=== PATIENT | female | born 1960 | race Caucasian/White ===

== ENCOUNTER 2023-02-22 06:58 | Emergency (ER) | payer MEDICARE, MEDICAID, SELFPAY ==
[2023-02-22 07:01] VITALS: BP 120/85; PULSE 90; TEMP 36.6; O2SAT 97; BMI 32.8
--- NOTE | 2023-02-22 07:10 | ED_ITS ---
HPI - Nausea/Vomiting/Diarrhea General: Chief complaint: Nausea/Vomiting/Diarrhea Stated complaint: n/v/d Time Seen by Provider: 02/22/23 07:00 Source: patient Mode of arrival: EMS Limitations: no limitations History of Present Illness: Patient is a 63-year-old female presents to ED today with a complaint of nausea, vomiting, diarrhea. Patient states symptoms started approximately 3 days ago. She states she is having approximately 4 episodes of nonbloody emesis today and states she will have a watery nonbloody diarrhea stool approximately every hour. She reports intermittent abdominal pain/cramping that she rates at its worst a 5/10. She has not been running fevers. No recent antibiotic use. No poor food exposures. Patient states she lives at home with her father-he does not have symptoms. Pain does not seem to be affected by eating but she admittedly has not ate over the past 1 to 2 days due to lack of appetite. She reports passing flatulence. No urinary symptoms. Previous abdominal surgeries include hysterectomy, cholecystectomy, appendectomy. She arrives to the ED via EMS in no acute distress with stable vital signs. MD elicited complaint: nausea, vomiting, diarrhea and abdominal pain Onset (ago): day(s) Associated nausea: Yes Associated abdominal pain: Yes Location of pain: Diffuse Pain consistency: intermittent Severity: moderate Pain scale (0-10): 5 Quality: cramping Exacerbating factors: none Relieving factors: none Associated symtoms: Reports nausea; Denies change in vision, chest pain, dizziness, dysuria, fatigue, headache(s), malaise, palpitations or syncope Review of Systems Const: Denies: fever(s), chills, body aches, fatigue or malaise Eyes: Denies: change in vision or blurry vision Card: Denies: chest pain, palpitations, irregular heart rhythm, lightheadedness, syncope or dyspnea on exertion Resp: Denies: dyspnea, productive cough or pain on inspiration GI: Reports: abdominal pain, nausea, vomiting and diarrhea; Denies: hematemesis, heartburn, hematochezia, melena, mucus in stool, white/light colored stool or steatorrhea : Denies: flank pain, difficulty voiding, dysuria, urinary frequency, urinary urgency or urinary hesitancy Musc: Denies: neck pain, back pain, extremity pain, extremity swelling or joint pain Skin/Breast: Denies: rash Neuro: Denies: headache(s), numbness in extremities, weakness in extremities, sensory changes or dizziness Physical Exam Const: COMMON NORMALS: no acute distress, patient oriented x3, no limitations, alert and well nourished GENERAL APPEARANCE: cooperative NUTRITIONAL APPEARANCE: overweight ORIENTATION/CONSCIOUSNESS: Yes awake, Yes oriented to person, Yes oriented to place and Yes oriented to time HENMT: COMMON NORMALS: normocephalic and atraumatic HEAD & SCALP: normocephalic and atraumatic Eye: COMMON NORMALS: no scleral icterus Neck/C-Spine: COMMON NORMALS: full ROM, no lymphadenopathy, supple and no meningeal signs Chest: COMMONS NORMALS: normal inspection of the chest Resp: COMMON NORMALS: normal respiratory effort and clear to auscultation bilaterally AUSCULTATION: clear to auscultation bilaterally Cardio: COMMON NORMALS: regular rate and regular rhythm RATE: regular rate RHYTHM: regular rhythm GI: COMMON NORMALS: Normal to inspection, nondistended, normoactive bowel sounds present, Soft to palpation, No hepatosplenomegaly present and no masses INSPECTION: Yes normal to inspection AUSCULTATION: Yes normoactive bowel sounds PALPATION: Yes Soft to palpation, Yes Tenderness to palpation present (GI) (epigastric; non-surgical exam), No Guarding due to palpation present (GI), No Rigid due to palpation and Yes No hepatosplenomegaly present : COMMON NORMALS: Yes no CVA tenderness BLADDER/KIDNEY EXAM: Yes no CVA tenderness Back/Pelvis: COMMON NORMALS: no CVA tenderness and thoracic and lumbar spine normal to inspection Extremity: COMMON NORMALS: normal to inspection GENERAL: Yes normal exam except as noted Neuro: JONEL COMA SCALE: document GCS findings Jonel coma scale eye opening: Spontaneous [place] coma scale verbal response: Orientated Jonel coma scale motor response: Obey commands [place] coma scale total score: 15 COMMON NORMALS: patient oriented x3, moves all extremities, no focal motor deficits and no sensory deficits noted SENSORIUM/ORIENTATION: Yes alert, Yes oriented to person, Yes oriented to place and Yes oriented to time MENINGEAL SIGNS: Yes no meningeal signs Skin: COMMON NORMALS: no rashes or lesions noted GENERAL SKIN EXAM: no rashes or lesions noted Course Vital Signs: Vital signs: Vital Signs Temperature 97.8 F 02/22/23 07:01 Pulse Rate 83 02/22/23 07:29 Respiratory Rate 16 02/22/23 07:29 Blood Pressure 120/85 02/22/23 07:29 Pulse Oximetry 98 02/22/23 07:29 Oxygen Delivery Me thod Room Air 02/22/23 07:29 MDM - Nausea/Vomiting/Diarrhea Medical Decision Making Upon re-examination patient tells me her nausea has much improved after IV Zofran. She has ate some crackers here as well as drink water and Sprite. She has not had any episodes of vomiting or diarrhea during her stay. Her vital signs have remained completely normal. Patient has some minor epigastric tenderness but her abdomen is certainly non-surgical at this time. Blood work does show a white count of 19.5. I think this is most likely stress/vomiting induced. Donnie panel showing some minor electrolyte derangements. Creatinine is slightly elevated at 1.5 although we do not have a baseline for comparison. Patient was given a liter of fluids. UA slightly suspicious for infection however patient denies urinary complaints. She states she would like to hold off on antibiotics at this time as this most likely would make her diarrhea worse. I think this is reasonable. We will culture. Discussed strict follow- up with her primary care provider this week for re-evaluation/lab repeat. Return to ED precautions given. Lab Data 02/22/23 07:12 02/22/23 07:12 Laboratory Results WBC 19.55 10^3/uL (3.29-11.43) H 02/22/23 07:12 RBC 4.95 10^6/uL (3.85-5.65) 02/22/23 07:12 Hgb 14.40 g/dL (11.27-16.99) 02/22/23 07:12 Hct 43.7 % (36-47) 02/22/23 07:12 MCV 88.3 fl (85-98) 02/22/23 07:12 MCH 29.1 pg (27-33) 02/22/23 07:12 MCHC 33.0 g/dL (30-55) 02/22/23 07:12 RDW 15.3 % (12.1-15.1) H 02/22/23 07:12 Plt Count 260 10^3/cmm (157-399) 02/22/23 07:12 MPV 9.3 fL (7.4-10.4) 02/22/23 07:12 Neut % (Auto) 86.8 % 02/22/23 07:12 Lymph % (Auto) 7.2 % 02/22/23 07:12 Garden % (Auto) 5.0 % 02/22/23 07:12 Eos % (Auto) 0.1 % 02/22/23 07:12 Baso % (Auto) 0.4 % 02/22/23 07:12 Neut # (Auto) 16.98 10^3/uL (1.8-7.7) H 02/22/23 07:12 Lymph # (Auto) 1.4 10^3/uL (0.8-4.8) 02/22/23 07:12 Garden # (Auto) 1.0 10^3/uL (0.2-0.9) H 02/22/23 07:12 Eos # (Auto) 0.0 10^3/uL (0.0-0.8) 02/22/23 07:12 Baso # (Auto) 0.1 10^3/uL (0.0-0.1) 02/22/23 07:12 Nucleated RBC % (auto) 0 % 02/22/23 07:12 Nucleated RBCs # 0.0 /100WBC 02/22/23 07:12 Sodium 133 mmol/L (136-145) L 02/22/23 07:12 Potassium 3.2 mmol/L (3.5-5.1) L 02/22/23 07:12 Chloride 93 mmol/L (98-107) L 02/22/23 07:12 Carbon Dioxide 26 mmol/L (22-29) 02/22/23 07:12 Anion Gap 17.2 (5-19) 02/22/23 07:12 BUN 15 mg/dL (8-23) 02/22/23 07:12 Creatinine 1.5 mg/dL (0.5-0.9) H 02/22/23 07:12 GFR Calculation 35.2 mL/min (90-130) L 02/22/23 07:12 Glucose 142 mg/dL (65-115) H 02/22/23 07:12 Calculated Osmolality 279 mOsm/kg (285-295) L 02/22/23 07:12 Calcium 9.5 mg/dL (8.5-10.5) 02/22/23 07:12 Total Bilirubin 0.8 mg/dL (0.15-1.2) 02/22/23 07:12 AST 26 U/L (0-32) 02/22/23 07:12 ALT 42 U/L (0-33) H 02/22/23 07:12 Alkaline Phosphatase 138 U/L (35-105) H 02/22/23 07:12 Total Protein 8.9 g/dL (6.6-8.7) H 02/22/23 07:12 Albumin 4.3 g/dL (3.5-5.2) 02/22/23 07:12 Globulin 4.6 g/dL (1.3-4.6) 02/22/23 07:12 Lipase 17 U/L (13-60) 02/22/23 07:12 Urine Color Dark yellow (Yellow) 02/22/23 08:11 Urine Appearance Clear (CLEAR) 02/22/23 08:11 Urine pH 5 (5-7) 02/22/23 08:11 Ur Specific [place] 1.020 (1.005-1.030) 02/22/23 08:11 Urine Protein Trace (Negative) 02/22/23 08:11 Urine Glucose (UA) Norm (Normal) 02/22/23 08:11 Urine Ketones Negative (Negative) 02/22/23 08:11 Urine Blood 2+ (Negative) H 02/22/23 08:11 Urine Nitrate Positive (Negative) H 02/22/23 08:11 Urine Bilirubin 1+ (Negative) H 02/22/23 08:11 Urine Urobilinogen Norm mg/dL (Negative) 02/22/23 08:11 Ur Leukocyte Esterase Trace (Negative) H 02/22/23 08:11 Urine RBC 10-15 /hpf (0-2) H 02/22/23 08:11 Urine WBC 0-4 /hpf (0-5) H 02/22/23 08:11 Ur Squamous Epith Cells 0-4 /hpf (0-5) H 02/22/23 08:11 Amorphous Sediment Not Reportable 02/22/23 08:11 Urine Bacteria 2+ /hpf (NONE) H 02/22/23 08:11 Urine Mucus 1+ /hpf 02/22/23 08:11 No radiology studies performed this visit Discharge Plan Discharge Patient Disposition: Home Clinical Impression: Gastroenteritis Condition: Stable Prescriptions: New ondansetron 4 mg tablet,disintegrating 4 mg PO Q8H PRN (Reason: nausea and vomiting) Qty: 14 0RF Discharge Orders: Discharge ED (Routine); Ordered 02/22/23 Ordered By: Shannan Castaneda Referrals: Zuhair Miguel NP [Nurse Practitioner] - 03/16/23 8:50 am (You have an appointment scheduled to establish primary care scheduled with Zuhair Miguel NP at [facility] on March 16, at 8:50AM. If this appointment does not work for you, please call to reschedule at [phone].) Patient Instructions: Gastroenteritis (DC), Acute Nausea and Vomiting (DC) Activity Restrictions/Additional Instructions: As we discussed you may take nausea medications as needed. I want you to start doing a bland liquid diet over the next 24 hours and slowly advance to soft foods and then back to a normal diet as tolerated. As we discussed you need to return to the emergency department for continued episodes of vomiting, diarrhea, worsening abdominal pain, fevers, generally feeling worse or unwell, or any other concerns you may have. 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
[2023-02-22 07:18] LABS: Basophils # 0.1 10^3/uL (0.0-0.1); Basophils % 0.4 %; Eosinophils % 0.1 %; Hematocrit 43.7 % (36-47); Lymphocytes # 1.4 10^3/uL (0.8-4.8); Lymphocytes % 7.2 %; Mean Corpuscular Hemoglobin 29.1 pg (27-33); Mean Corpuscular Volume 88.3 fl (85-98); Mean Platelet Volume 9.3 fL (7.4-10.4); Neutrophils # 16.98 10^3/uL (1.8-7.7); Neutrophils % 86.8 %; Nucleated Red Blood Cells % 0 %; Platelet Count 260 10^3/cmm (157-399); Red Blood Count 4.95 10^6/uL (3.85-5.65); Red Cell Distribution Width 15.3 % (12.1-15.1); White Blood Count 19.55 10^3/uL (3.29-11.43)
[2023-02-22] MEDS: ondansetron 2 mg/ML SDV 2 mL 4 MG IVP (07:24)
[2023-02-22] MEDS: sodium chloride 0.9% 1,000 ML 999 ML IV (07:25)
[2023-02-22 07:29] VITALS: BP 120/85; PULSE 83; RESP 16; O2SAT 98
[2023-02-22 07:35] LABS: Alanine Aminotransferase 42 U/L (0-33); Albumin Level 4.3 g/dL (3.5-5.2); Alkaline Phosphatase 138 U/L (35-105); Anion Gap 17.2 (5-19); Aspartate Amino Transferase 26 U/L (0-32); Blood Urea Nitrogen 15 mg/dL (8-23); Calcium 9.5 mg/dL (8.5-10.5); Carbon Dioxide 26 mmol/L (22-29); Chloride 93 mmol/L (98-107); Globulin 4.6 g/dL (1.3-4.6); Glomerular Filtration Rate 35.2 mL/min (90-130); Glucose 142 mg/dL (65-115); Lipase 17 U/L (13-60); Osmolality Calculated 279 mOsm/kg (285-295); Potassium 3.2 mmol/L (3.5-5.1); Sodium 133 mmol/L (136-145); Total Bilirubin 0.8 mg/dL (0.15-1.2); Total Protein 8.9 g/dL (6.6-8.7)
--- NOTE | 2023-02-22 07:40 | PC.PHAR ---
Addendum entered by Monica Womack 02/22/23 09:15: pt discharged before [facility] was able to verify meds Original Note: pt uses [facility]-they open at 9am-pt states she takes hctz one tab hs-kcl 2 tabs hs-effexor 1 tab hs-gabapentin 100mg 200mg bid and some kind of bladder medication one tab hs-pt states she is unsure of the mg's of her meds [facility] doesnt open till 9 to verify
[2023-02-22 08:36] LABS: Add Urine Microscopic? YES; Bilirubin Urine 1+ (Negative); Blood Urine 2+ (Negative); Glucose Urine UA Norm (Normal); Ketones Urine Negative (Negative); Leukocyte Esterase Urine Trace (Negative); Nitrate Urine Positive (Negative); Protein Urine Trace (Negative); Urine Appearance Clear (CLEAR); Urine Color Dark Yellow (Yellow); Urobilinogen Urine Norm (Negative); pH Urine 5 (5-7)
[2023-02-22 08:38] LABS: Add Urine Culture? Yes; Bacteria Urine 2+ /hpf; Mucus Urine 1+ /hpf; Squamous Epithelial Cell Urine 0-4 /hpf (0-5); WBC Urine 0-4 /hpf (0-5)
[2023-02-22 08:43] VITALS: BP 147/86; PULSE 90; RESP 16; O2SAT 96
--- NOTE | 2023-02-22 08:46 | PC.SOCIAL ---
PCP Appt Appt to establish primary care made; added to discharge plan.
[2023-02-22 09:11] VITALS: BP 147/86; PULSE 90; RESP 16; O2SAT 96
== END 2023-02-22 09:12 | disposition home or self-care (01) ==
PROVIDERS: Emergency Provider Physician Assistant
DX: K52.9 Noninfective gastroenteritis and colitis, unspecified (principal)
CPT/HCPCS: 80053; 81001; 83690; 85025; 87077; 87086; 87186; 96361; 96374; 99284; J2405; J7030

== ENCOUNTER 2023-02-24 14:58 | Inpatient (IN) | payer MEDICARE, MEDICAID, SELFPAY ==
[2023-02-24] VITALS (7 sets, daily range): BP systolic 128–149; BP diastolic 79–81; PULSE 81–89; RESP 15–17; TEMP 36.4–37.1; O2SAT 97–98; BMI 33.6
--- NOTE | 2023-02-24 15:08 | CTR_ITS ---
PROCEDURE INFORMATION: Exam: CT Abdomen And Pelvis With Contrast Exam date and time: 02/24/2023 5:38 PM Age: 63 years old Clinical indication: Abdominal pain; Localized; Left lower quadrant (llq); Prior surgery; Surgery date: 6+ months; Surgery type: Jess, hyst, stimulator; Additional info: Lower abdominal, llq pain; UTI TECHNIQUE: Imaging protocol: Computed tomography of the abdomen and pelvis with contrast. Radiation optimization: All CT scans at this facility use at least one of these dose optimization techniques: automated exposure control; mA and/or kV adjustment per patient size (includes targeted exams where dose is matched to clinical indication); or iterative reconstruction. Contrast material: OMNI 350; Contrast volume: 100 ml; Contrast route: INTRAVENOUS (IV); REPORTING DATA: Count of CT and Cardiac NM exams in prior 12 months: This patient has received 0 known CTs and 0 known cardiac nuclear medicine studies in the 12 months prior to the current study. COMPARISON: No relevant prior studies available. RADIATION DOSE METRICS: Total DLP (mGy-cm): 754 FINDINGS: Tubes, catheters and devices: Left sacral stimulator. Lungs: Bibasilar atelectasis. Liver: Hepatic steatosis. Gallbladder and bile ducts: Cholecystectomy. Pancreas: Normal. No ductal dilation. Spleen: Spleen enlarged at 13 cm. Adrenal glands: Normal. No mass. Kidneys and ureters: Normal. No hydronephrosis. Stomach and bowel: Prominent fluid in the small bowel and colon with left colon wall thickening suggestive of an enterocolitis. Appendix: Appendix demonstrates minimal dilation to 6.8 mm without surrounding inflammation, findings are not definitive for appendicitis by CT alone, please correlate clinically. Intraperitoneal space: Unremarkable. No free air. No significant fluid collection. Vasculature: Unremarkable. No abdominal aortic aneurysm. Lymph nodes: Unremarkable. No enlarged lymph nodes. Urinary bladder: Unremarkable as visualized. Reproductive: Unremarkable as visualized. Bones/joints: T12 and L5 vertebral body compression fractures with minimal retropulsion of bony fragments without spinal canal narrowing. Soft tissues: Unremarkable. CT/CT abdomen pelvis w con* [id number] IMPRESSION: 1. Prominent fluid in the small bowel and colon with left colon wall thickening suggestive of an enterocolitis. 2. T12 and L5 vertebral body compression fractures with minimal retropulsion of bony fragments without spinal canal narrowing. 3. Left sacral stimulator. 4. Appendix demonstrates minimal dilation to 6.8 mm without surrounding inflammation, findings are not definitive for appendicitis by CT alone, please correlate clinically. 5. Bibasilar atelectasis. 6. Hepatic steatosis. 7. Cholecystectomy. 8. Spleen enlarged at 13 cm.
--- NOTE | 2023-02-24 15:09 | ED_ITS ---
Dr. Costello: Have seen and examined the patient. She continues to have diarrhea many times throughout her ER stay. She has urinary frequency with low volumes. She has an E. coli UTI. She has dehydration and hypokalemia. C. difficile is pending. CT scan suggestive of enterocolitis. Discussed with patient and hospitalist. Patient will be admitted to [facility] with IV fluids. We will give her Rocephin for her UTI and follow stool studies. She has gotten 60 mEq of potassium in the ED as an oral dose and is getting 20 IV. Documented by User: MED Matute 02/25/23 07:06 HPI - Abdominal Pain General: Chief Complaint: Nausea/Vomiting/Diarrhea Stated Complaint: N/V/D Time Seen by Provider: 02/24/23 15:01 Source: patient Mode of arrival: ambulatory Limitations: no limitations History of Present Illness: Patient is a 63-year-old female who returns to the ED today for re-evaluation of symptoms. I personally saw patient two days ago with complaints of N/V/D that had been present for about three days or so. At that visit she had some mild intermittent abdominal cramping. She was worked up with blood work that did show leukocytosis. She had a nontender abdomen. UA at the time looks suspicious for UTI however patient had absolutely no urinary complaints and we discussed holding off on antibiotic coverage until culture returns especially since this was likely to worsen her diarrhea. Patient states since her discharge her nausea and vomiting has subsided. She has continued to have frequent watery diarrhea. She states since her visit she now has developed symptoms consistent with acute cystitis with dysuria, frequency, urgency. She is also complaining of some lower abdominal cramping to suprapubic and left lower quadrant regions. She has not been running fevers. Denies flank pain. Review of previous urine culture does show E. coli. MD elicited complaint: abdominal pain and other (diarrhea, urinary complaints) Onset (ago): day(s) Pain Consistency: constant Location: LLQ and Suprapubic Severity: moderate Quality: sharp Radiation: back Migration to: no migration Exacerbating factors: other (urinating) Relieving factors: nothing Associated Symptoms: Reports diarrhea, dysuria and nausea; Denies chills, fever(s), heartburn, hematochezia, hematuria, hematemesis, melena, syncope and vomiting Related Data: Patient : No Review of Systems Const: Denies: fever(s), chills, body aches, fatigue or malaise Eyes: Denies: change in vision or blurry vision Card: Denies: chest pain, palpitations, irregular heart rhythm, lighthea dedness, syncope or dyspnea on exertion Resp: Denies: dyspnea, productive cough or pain on inspiration GI: Reports: abdominal pain, nausea and diarrhea; Denies: vomiting, hematemesis, heartburn, hematochezia or melena : Reports: dysuria, urinary frequency and urinary urgency; Denies: flank pain, difficulty voiding, hematuria or pelvic pain Musc: Reports: back pain; Denies: neck pain, extremity pain, extremity swelling or joint pain Skin/Breast: Denies: rash Neuro: Denies: headache(s), numbness in extremities, weakness in extremities, sensory changes or dizziness PFSH ED PFSH: Medical History (Updated 02/24/23 @ 20:03 by Campos Mccollum MD) HTN (hypertension) Kidney calculi Lumbar vertebral fracture Surgical History (Updated 02/24/23 @ 20:03 by Campos Mccollum MD) H/O lithotripsy H/O: hysterectomy Family History (Updated 02/24/23 @ 20:03 by Campos Mccollum MD) Other CAD (coronary artery disease) Diabetes Social History (Updated 02/24/23 @ 20:03 by Campos Mccollum MD) Smoking and tobacco status: never smoked Alcohol intake: never Substance/Drug Use: never Lives independently: Yes Household members: family Housing: House Physical Exam Const: COMMON NORMALS: no acute distress, patient oriented x3, no limitations, alert and well nourished GENERAL APPEARANCE: cooperative ROWENA ENTATION/CONSCIOUSNESS: Yes awake, Yes oriented to person, Yes oriented to place and Yes oriented to time Eye: COMMON NORMALS: no scleral icterus Resp: COMMON NORMALS: normal respiratory effort and clear to auscultation bilaterally AUSCULTATION: clear to auscultation bilaterally Cardio: COMMON NORMALS: regular rate and regular rhythm RATE: regular rate RHYTHM: regular rhythm GI: COMMON NORMALS: Normal to inspection, nondistended, normoactive bowel sounds present, Soft to palpation, No hepatosplenomegaly present and no masses INSPECTION: Yes normal to inspection AUSCULTATION: Yes normoactive bowel sounds PALPATION: Yes Soft to palpation, Yes Tenderness to palpation present (GI) (suprapubic, LLQ), No Guarding due to palpation present (GI), No Rigid due to palpation and Yes No hepatosplenomegaly present : COMMON NORMALS: Yes no CVA tenderness BLADDER/KIDNEY EXAM: Yes no CVA tenderness Back/Pelvis: COMMON NORMALS: no CVA tenderness THORACIC SPINE/UPPER BACK: Yes normal to inspection, No thoracic spinal tenderness, No paraspinal muscle tenderness and No paraspinal muscle spasm LUMBAR SPINE/LOWER BACK: Yes normal to inspection, No lumbar spinal tenderness, Yes paraspinal muscle tenderness and No paraspinal muscle spasm PELVIS: Yes buttocks normal and No sciatic notch tenderness SACROILIAC JOINTS: Yes SI joints normal SACRUM: no tenderness COCCYX: no tenderness Extremity: COMMON NORMALS: normal to inspection GENERAL: Yes normal exam except as noted Neuro: JONEL COMA SCALE: document GCS findings Jonel coma scale eye opening: Spontaneous Jonel coma scale verbal response: Orientated Jonel coma scale motor response: Obey commands Pelican coma scale total score: 15 COMMON NORMALS: patient oriented x3, moves all extremities, no focal motor deficits and no sensory deficits noted SENSORIUM/ORIENTATION: Yes alert, Yes oriented to person, Yes oriented to place and Yes oriented to time Skin: COMMON NORMALS: no rashes or lesions noted GENERAL SKIN EXAM: no rashes or lesions noted Course ED course: Care transferred to Dr. Costello pending remainder of labs/UA/CT imaging. Plan will be for admission for worsening diarrhea, UTI, hypokalemia Vital Signs: Vital signs: Vital Signs Temperature 97.2 F L 02/25/23 11:01 Pulse Rate 82 02/25/23 11:01 Respiratory Rate 17 02/25/23 11:01 Blood Pressure 112/57 02/25/23 11:01 Pulse Oximetry 97 02/25/23 11:01 Oxygen Delivery Me thod Room Air 02/25/23 04:14 MDM - Abdominal Pain Medical Decision Making Care transferred to Dr. Costello-CATHERINE Lab Data 02/25/23 05:15 02/25/23 05:15 Labs/Radiology: Radiology Impressions Abdomen/Pelvis CT 02/24/23 15:08 IMPRESSION: 1. Prominent fluid in the small bowel and colon with left colon wall thickening suggestive of an enterocolitis. 2. T12 and L5 vertebral body compression fractures with minimal retropulsion of bony fragments without spinal canal narrowing. 3. Left sacral stimulator. 4. Appendix demonstrates minimal dilation to 6.8 mm without surrounding inflammation, findings are not definitive for appendicitis by CT alone, please correlate clinically. 5. Bibasilar atelectasis. 6. Hepatic steatosis. 7. Cholecystectomy. 8. Spleen enlarged at 13 cm. Laboratory Results WBC 9.02 10^3/uL (3.29-11.43) 02/24/23 15:41 RBC 4.83 10^6/uL (3.85-5.65) 02/24/23 15:41 Hgb 13.80 g/dL (11.27-16.99) 02/24/23 15:41 Hct 40.9 % (36-47) 02/24/23 15:41 MCV 84.7 fl (85-98) L 02/24/23 15:41 MCH 28.6 pg (27-33) 02/24/23 15:41 MCHC 33.7 g/dL (30-55) 02/24/23 15:41 RDW 15.2 % (12.1-15.1) H 02/24/23 15:41 Plt Count 261 10^3/cmm (157-399) 02/24/23 15:41 MPV 10.4 fL (7.4-10.4) 02/24/23 15:41 Lymph % (Auto) Not Reportable 02/24/23 15:41 Tripp % (Auto) Not Reportable 02/24/23 15:41 Lymph # (Auto) Not Reportable 02/24/23 15:41 Tripp # (Auto) Not Reportable 02/24/23 15:41 Total Counted 100 (0-100) 02/24/23 15:41 Atypical Lymphs % 2.0 % (0-5) 02/24/23 15:41 Absolute Neutrophils 5.4 10^3/cmm (1.4-6.5) 02/24/23 15:41 Segmented Neutrophils 41 % 02/24/23 15:41 Abs Segm Neuts (Man) 3.7 10/cmm (1.6-7.1) 02/24/23 15:41 Band Neutrophils 19.0 % 02/24/23 15:41 Abs Band Neuts (Man) 1.7 10^3/cmm (0.0-1.2) H 02/24/23 15:41 Absolute Lymphocytes 2.0 10^3/cmm (1.2-3.4) 02/24/23 15:41 Lymphocytes (Manual) 20 % 02/24/23 15:41 Monocytes (Manual) 13.0 % 02/24/23 15:41 Absolute Monocytes 1.2 10^3/cmm (0.1-0.6) H 02/24/23 15:41 Eosinophils (Manual) 3 % 02/24/23 15:41 Absolute Eosinophils 0.3 10^3/cmm (0.0-0.7) 02/24/23 15:41 Basophils (Manual) 0.0 % 02/24/23 15:41 Absolute Basophils 0.0 10^3/cmm (0.0-0.2) 02/24/23 15:41 Platelet Estimate Normal (Normal) 02/24/23 15:41 Sodium 129 mmol/L (136-145) L 02/24/23 16:08 Potassium 2.5 mmol/L (3.5-5.1) L* 02/24/23 16:08 Chloride 90 mmol/L (98-107) L 02/24/23 16:08 Carbon Dioxide 25 mmol/L (22-29) 02/24/23 16:08 Anion Gap 16.5 (5-19) 02/24/23 16:08 BUN 22 mg/dL (8-23) 02/24/23 16:08 Creatinine 1.6 mg/dL (0.5-0.9) H 02/24/23 16:08 GFR Calculation 32.7 mL/min (90-130) L 02/24/23 16:08 Glucose 130 mg/dL (65-115) H 02/24/23 16:08 Estimat Average Glucose 120 02/24/23 15:41 Hemoglobin A1c 5.8 % (4.0-6.0) 02/24/23 15:41 Calculated Osmolality 273 mOsm/kg (285-295) L 02/24/23 16:08 Calcium 8.7 mg/dL (8.5-10.5) 02/24/23 16:08 Magnesium 1.9 mg/dL (1.7-2.3) 02/24/23 16:08 Total Bilirubin 0.9 mg/dL (0.15-1.2) 02/24/23 16:08 AST 31 U/L (0-32) 02/24/23 16:08 ALT 32 U/L (0-33) 02/24/23 16:08 Alkaline Phosphatase 108 U/L (35-105) H 02/24/23 16:08 Total Protein 8.2 g/dL (6.6-8.7) 02/24/23 16:08 Albumin 3.7 g/dL (3.5-5.2) 02/24/23 16:08 Globulin 4.5 g/dL (1.3-4.6) 02/24/23 16:08 Lipase 19 U/L (13-60) 02/24/23 16:08 Vitamin B12 480 pg/mL (232-1245) 02/24/23 16:08 Procalcitonin 0.55 ng/mL (0-0.5) H 02/24/23 16:08 TSH 3.77 uIU/mL (0.27-4.20) 02/24/23 16:08 Urine Color Yellow (Yellow) 02/24/23 16:32 Urine Appearance Cloudy (CLEAR) A 02/24/23 16:32 Urine pH 5 (5-7) 02/24/23 16:32 Ur Specific [place] 1.020 (1.005-1.030) 02/24/23 16:32 Urine Protein 3+ (Negative) H 02/24/23 16:32 Urine Glucose (UA) Norm (Normal) 02/24/23 16:32 Urine Ketones 1+ (Negative) H 02/24/23 16:32 Urine Blood 3+ (Negative) H 02/24/23 16:32 Urine Nitrate Negative (Negative) 02/24/23 16:32 Urine Bilirubin Neg (Negative) 02/24/23 16:32 Urine Urobilinogen 1 mg/dL (Negative) H 02/24/23 16:32 Ur Leukocyte Esterase 2+ (Negative) H 02/24/23 16:32 Urine RBC 10-15 /hpf (0-2) H 02/24/23 16:32 Urine WBC Too numerous to cnt /hpf (0-5) H 02/24/23 16:32 Ur Squamous Epith Cells 0-4 /hpf (0-5) H 02/24/23 16:32 Amorphous Sediment Not Reportable 02/24/23 16:32 Urine Bacteria Trace /hpf (NONE) 02/24/23 16:32 All radiology interpretation(s) finalized by discharge Discharge Plan Discharge Patient Disposition: Admitted As Inpatient Admit Provider: Campos Mccollum Clinical Impression: E-coli UTI, Dehydration, Acute hypokalemia, Diarrhea, Hyponatremia Condition: Stable Coding Level of Care Code ED [employer] Maker for Chg Fwd Documented by User: Tye Costello MD 02/25/23 11:35 HPI - Abdominal Pain General: Chief Complaint: Nausea/Vomiting/Diarrhea Stated Complaint: N/V/D Time Seen by Provider: 02/24/23 15:01 [facility] ED PFSH: Medical History (Updated 02/24/23 @ 20:03 by Campos Mccollum MD) HTN (hypertension) Kidney calculi Lumbar vertebral fracture Surgical History (Updated 02/24/23 @ 20:03 by Campos Mccollum MD) H/O lithotripsy H/O: hysterectomy Family History (Updated 02/24/23 @ 20:03 by Campos Mccollum MD) Other CAD (coronary artery disease) Diabetes Social History (Updated 02/24/23 @ 20:03 by Campos Mccollum MD) Smoking and tobacco status: never smoked Alcohol intake: never Substance/Drug Use: never Lives independently: Yes Household members: family Housing: House Physical Exam Neuro: JONEL COMA SCALE: document GCS findings Pelican coma scale total score: 15 Course Vital Signs: Vital signs: Vital Signs Temperature 97.2 F L 02/25/23 11:01 Pulse Rate 82 02/25/23 11:01 Respiratory Rate 17 02/25/23 11:01 Blood Pressure 112/57 02/25/23 11:01 Pulse Oximetry 97 02/25/23 11:01 Oxygen Delivery Me thod Room Air 02/25/23 04:14 MDM - Abdominal Pain Lab Data 02/25/23 05:15 02/25/23 05:15 Labs/Radiology: Radiology Impressions Abdomen/Pelvis CT 02/24/23 15:08 IMPRESSION: 1. Prominent fluid in the small bowel and colon with left colon wall thickening suggestive of an enterocolitis. 2. T12 and L5 vertebral body compression fractures with minimal retropulsion of bony fragments without spinal canal narrowing. 3. Left sacral stimulator. 4. Appendix demonstrates minimal dilation to 6.8 mm without surrounding inflammation, findings are not definitive for appendicitis by CT alone, please correlate clinically. 5. Bibasilar atelectasis. 6. Hepatic steatosis. 7. Cholecystectomy. 8. Spleen enlarged at 13 cm. Laboratory Results WBC 9.02 10^3/uL (3.29-11.43) 02/24/23 15:41 RBC 4.83 10^6/uL (3.85-5.65) 02/24/23 15:41 Hgb 13.80 g/dL (11.27-16.99) 02/24/23 15:41 Hct 40.9 % (36-47) 02/24/23 15:41 MCV 84.7 fl (85-98) L 02/24/23 15:41 MCH 28.6 pg (27-33) 02/24/23 15:41 MCHC 33.7 g/dL (30-55) 02/24/23 15:41 RDW 15.2 % (12.1-15.1) H 02/24/23 15:41 Plt Count 261 10^3/cmm (157-399) 02/24/23 15:41 MPV 10.4 fL (7.4-10.4) 02/24/23 15:41 Lymph % (Auto) Not Reportable 02/24/23 15:41 Tripp % (Auto) Not Reportable 02/24/23 15:41 Lymph # (Auto) Not Reportable 02/24/23 15:41 Tripp # (Auto) Not Reportable 02/24/23 15:41 Total Counted 100 (0-100) 02/24/23 15:41 Atypical Lymphs % 2.0 % (0-5) 02/24/23 15:41 Absolute Neutrophils 5.4 10^3/cmm (1.4-6.5) 02/24/23 15:41 Segmented Neutrophils 41 % 02/24/23 15:41 Abs Segm Neuts (Man) 3.7 10/cmm (1.6-7.1) 02/24/23 15:41 Band Neutrophils 19.0 % 02/24/23 15:41 Abs Band Neuts (Man) 1.7 10^3/cmm (0.0-1.2) H 02/24/23 15:41 Absolute Lymphocytes 2.0 10^3/cmm (1.2-3.4) 02/24/23 15:41 Lymphocytes (Manual) 20 % 02/24/23 15:41 Monocytes (Manual) 13.0 % 02/24/23 15:41 Absolute Monocytes 1.2 10^3/cmm (0.1-0.6) H 02/24/23 15:41 Eosinophils (Manual) 3 % 02/24/23 15:41 Absolute Eosinophils 0.3 10^3/cmm (0.0-0.7) 02/24/23 15:41 Basophils (Manual) 0.0 % 02/24/23 15:41 Absolute Basophils 0.0 10^3/cmm (0.0-0.2) 02/24/23 15:41 Platelet Estimate Normal (Normal) 02/24/23 15:41 Sodium 129 mmol/L (136-145) L 02/24/23 16:08 Potassium 2.5 mmol/L (3.5-5.1) L* 02/24/23 16:08 Chloride 90 mmol/L (98-107) L 02/24/23 16:08 Carbon Dioxide 25 mmol/L (22-29) 02/24/23 16:08 Anion Gap 16.5 (5-19) 02/24/23 16:08 BUN 22 mg/dL (8-23) 02/24/23 16:08 Creatinine 1.6 mg/dL (0.5-0.9) H 02/24/23 16:08 GFR Calculation 32.7 mL/min (90-130) L 02/24/23 16:08 Glucose 130 mg/dL (65-115) H 02/24/23 16:08 Estimat Average Glucose 120 02/24/23 15:41 Hemoglobin A1c 5.8 % (4.0-6.0) 02/24/23 15:41 Calculated Osmolality 273 mOsm/kg (285-295) L 02/24/23 16:08 Calcium 8.7 mg/dL (8.5-10.5) 02/24/23 16:08 Magnesium 1.9 mg/dL (1.7-2.3) 02/24/23 16:08 Total Bilirubin 0.9 mg/dL (0.15-1.2) 02/24/23 16:08 AST 31 U/L (0-32) 02/24/23 16:08 ALT 32 U/L (0-33) 02/24/23 16:08 Alkaline Phosphatase 108 U/L (35-105) H 02/24/23 16:08 Total Protein 8.2 g/dL (6.6-8.7) 02/24/23 16:08 Albumin 3.7 g/dL (3.5-5.2) 02/24/23 16:08 Globulin 4.5 g/dL (1.3-4.6) 02/24/23 16:08 Lipase 19 U/L (13-60) 02/24/23 16:08 Vitamin B12 480 pg/mL (232-1245) 02/24/23 16:08 Procalcitonin 0.55 ng/mL (0-0.5) H 02/24/23 16:08 TSH 3.77 uIU/mL (0.27-4.20) 02/24/23 16:08 Urine Color Yellow (Yellow) 02/24/23 16:32 Urine Appearance Cloudy (CLEAR) A 02/24/23 16:32 Urine pH 5 (5-7) 02/24/23 16:32 Ur Specific [place] 1.020 (1.005-1.030) 02/24/23 16:32 Urine Protein 3+ (Negative) H 02/24/23 16:32 Urine Glucose (UA) Norm (Normal) 02/24/23 16:32 Urine Ketones 1+ (Negative) H 02/24/23 16:32 Urine Blood 3+ (Negative) H 02/24/23 16:32 Urine Nitrate Negative (Negative) 02/24/23 16:32 Urine Bilirubin Neg (Negative) 02/24/23 16:32 Urine Urobilinogen 1 mg/dL (Negative) H 02/24/23 16:32 Ur Leukocyte Esterase 2+ (Negative) H 02/24/23 16:32 Urine RBC 10-15 /hpf (0-2) H 02/24/23 16:32 Urine WBC Too numerous to cnt /hpf (0-5) H 02/24/23 16:32 Ur Squamous Epith Cells 0-4 /hpf (0-5) H 02/24/23 16:32 Amorphous Sediment Not Reportable 02/24/23 16:32 Urine Bacteria Trace /hpf (NONE) 02/24/23 16:32 Discharge Plan Discharge Patient Disposition: Admitted As Inpatient Admit Provider: Campos Mccollum Clinical Impression: E-coli UTI, Dehydration, Acute hypokalemia, Diarrhea, Hyponatremia Condition: Stable Coding Level of Care Code ED [employer] Maker for Gustavo Pete
[2023-02-24] MEDS: morphine 4 mg/mL SDV 1 mL IVP (15:42)
[2023-02-24 16:00] LABS: Hematocrit 40.9 % (36-47); Mean Corpuscular HGB Conc 33.7 g/dL (30-55); Mean Corpuscular Hemoglobin 28.6 pg (27-33); Mean Corpuscular Volume 84.7 fl (85-98); Mean Platelet Volume 10.4 fL (7.4-10.4); Platelet Count 261 10^3/cmm (157-399); Red Blood Count 4.83 10^6/uL (3.85-5.65); Red Cell Distribution Width 15.2 % (12.1-15.1); White Blood Count 9.02 10^3/uL (3.29-11.43)
[2023-02-24 16:37] LABS: Alanine Aminotransferase 32 U/L (0-33); Albumin Level 3.7 g/dL (3.5-5.2); Alkaline Phosphatase 108 U/L (35-105); Anion Gap 16.5 (5-19); Aspartate Amino Transferase 31 U/L (0-32); Blood Urea Nitrogen 22 mg/dL (8-23); Calcium 8.7 mg/dL (8.5-10.5); Carbon Dioxide 25 mmol/L (22-29); Chloride 90 mmol/L (98-107); Globulin 4.5 g/dL (1.3-4.6); Glomerular Filtration Rate 32.7 mL/min (90-130); Glucose 130 mg/dL (65-115); Lipase 19 U/L (13-60); Osmolality Calculated 273 mOsm/kg (285-295); Sodium 129 mmol/L (136-145); Total Bilirubin 0.9 mg/dL (0.15-1.2); Total Protein 8.2 g/dL (6.6-8.7)
[2023-02-24 16:42] LABS: Potassium 2.5 mmol/L (3.5-5.1)
[2023-02-24 16:43] LABS: Absolute Eosinophils 0.3 10^3/cmm (0.0-0.7); Absolute Neutrophil 5.4 10^3/cmm (1.4-6.5); Absolute Segmented Neutrophil 3.7 10/cmm (1.6-7.1); Band Neutrophils Absolute 1.7 10^3/cmm (0.0-1.2); Eosinophils 3 %; Lymphocytes 20 %; Monocytes Absolute 1.2 10^3/cmm (0.1-0.6); Platelet Estimate Normal (Normal); Segmented Neutrophils 41 %; Slide Review Slide Review Perform; Total Cells Counted 100 (0-100)
--- NOTE | 2023-02-24 16:44 | PC.NURSE ---
PT WAS GIVEN PEE CUP FOR URINE AND STOOL SAMPLE.
[2023-02-24 17:11] LABS: Add Urine Culture? Yes; Add Urine Microscopic? YES; Bacteria Urine TRACE /hpf; Bilirubin Urine Neg (Negative); Blood Urine 3+ (Negative); Glucose Urine UA Norm (Normal); Ketones Urine 1+ (Negative); Leukocyte Esterase Urine 2+ (Negative); Nitrate Urine Negative (Negative); Protein Urine 3+ (Negative); Squamous Epithelial Cell Urine 0-4 /hpf (0-5); Urine Appearance Cloudy (CLEAR); Urine Color Yellow (Yellow); Urobilinogen Urine 1 mg/dL (Negative); WBC Urine TOO NUMEROUS TO CNT /hpf (0-5); pH Urine 5 (5-7)
[2023-02-24 17:12] LABS: Magnesium 1.9 mg/dL (1.7-2.3)
[2023-02-24] MEDS: potassium chloride ER 20 mEq Tablet 60 MEQ PO (17:27)
[2023-02-24] MEDS: sodium chloride 0.9% 1,000 ML 999 ML IV ×2 (17:28→20:38)
[2023-02-24] MEDS: iohexol 350 mg/mL 500 mL Btl (per mL) IV (17:50)
[2023-02-24] MEDS: potassium chloride premix 100 ML 50 MEQ IV (17:58)
--- NOTE | 2023-02-24 20:00 | PM.HP ---
Providers/Chief Complaint Chief Complaint: N/V/D History of Present Illness Darby Rivera is a 63 year old female with past medical history of hypertension presented to the ER on Wednesday with ongoing diarrhea for last 7 to 10 days. As per patient she has had multiple episodes of soft to watery bowel movements for last 7 to 10 days along with development of dizziness, weakness, lethargy and cramps for left 2 days. Patient presented to the ER today because the weakness was worsening. She reports poor oral intake because of nausea. For last 2 days she is also complaining of dysuria. Patient came to the ER on Wednesday (2 day is wednesday) and was sent home after taking urine culture on oral hydration. Urine culture from that day is growing E. coli which is pansensitive. In the ER patient was found to have bilateral abnormalities hence hospitalist service was consulted for further evaluation and management. Review of Systems General: Reports: 10 or more systems reviewed and unremarkable except in HPI and below Const: Denies: fever(s), chills, body aches, change in appetite, change in weight, malaise, night sweats, diaphoresis, change in sleep pattern, daytime sleepiness or snoring Eyes: Denies: change in vision, blurry vision, photophobia, eye discomfort or eye discharge ENMT: Denies: throat pain, enlarged tonsils, hoarseness, mouth pain, oral sores, dry mouth, tinnitus, nasal congestion or post nasal drip Card: Denies: chest pain, palpitations, irregular heart rhythm, edema, swelling of feet/ankles, lightheadedness, syncope, pre-syncope, dyspnea on exertion, orthopnea, leg pain with exertion or acrocyanosis Resp: Denies: dyspnea, productive cough, non-productive cough, wheezing, stridor, pain on inspiration, change in phlegm color, hemoptysis or chest congestion GI: Denies: abdominal pain, nausea, vomiting, hematemesis, coffee ground emesis, dysphagia, heartburn, diarrhea, constipation, bloating, GI cramping, change in bowel habits, pain on defecation, hematochezia or melena : Denies: flank pain, dysuria, urinary frequency, urinary urgency, urinary hesitancy, nocturia or hematuria Musc: Denies: neck pain, back pain, extremity pain, joint pain, joint swelling, joint redness, joint stiffness or limited range of motion Neuro: Denies: headache(s), numbness in extremities, weakness in extremities, sensory changes, lack of coordination, difficulty walking, frequent falls, dizziness, vertigo, confusion, Slurred speech present, difficulty communicating thoughts or seizure-like activity Psych: Denies: anxiety, depression, mood swings, panic attacks, hopelessness or irritability Endo: Denies: polyuria, polydipsia, tired all the time, cold intolerance, excessive sweating, flushing or heat intolerance Charles/Lymph: Denies: easy bruising or easy bleeding All/Imm: Denies: tongue swelling, facial swelling or acute wheezing Medications/Allergies Home Medications Medication Instructions Recorded Confirmed Last Taken Type ondansetron 4 mg disintegrating 4 mg PO Q8H PRN nausea and 02/22/23 02/24/23 Unknown Rx tablet vomiting #14 tabs atorvastatin 20 mg tablet 20 mg PO QPM 02/24/23 02/24/23 Unknown History clopidogrel 75 mg tablet 75 mg PO QPM 02/24/23 02/24/23 Unknown History gabapentin 100 mg capsule 100 mg PO TID 02/24/23 02/24/23 Unknown History hydrochlorothiazide 25 mg tablet 25 mg PO DAILY 02/24/23 02/24/23 Unknown History pantoprazole 20 mg tablet,delayed 20 mg PO DAILY 02/24/23 02/24/23 Unknown History release potassium chloride 20 mEq 20 meq PO BID 02/24/23 02/24/23 Unknown History tablet,extended release(part/cryst) rizatriptan 10 mg disintegrating 10 mg PO Q8H PRN Migraine Headache 02/24/23 02/24/23 Unknown History tablet tizanidine 4 mg tablet 4 mg PO Q8H PRN Muscle Spasm 02/24/23 02/24/23 Unknown History tolterodine 4 mg capsule,extended 4 mg PO DAILY 02/24/23 02/24/23 Unknown History release 24 hr venlafaxine 150 mg 150 mg PO DAILY 02/24/23 02/24/23 Unknown History capsule,extended release 24 hr Allergies Allergy/AdvReac Type Severity Reaction Status Date / Time Penicillins Allergy ALGY-Rash Verified 02/24/23 15:43 Sulfa (Sulfonamide Allergy ALGY-Rash Verified 02/24/23 15:43 Antibiotics) PFSH Acute PFSH: Medical History (Updated 02/24/23 @ 20:03 by Campos Mccollum MD) HTN (hypertension) Kidney calculi Lumbar vertebral fracture Surgical History (Updated 02/24/23 @ 20:03 by Campos Mccollum MD) H/O lithotripsy H/O: hysterectomy Family History (Updated 02/24/23 @ 20:03 by Campos Mccollum MD) Other CAD (coronary artery disease) Diabetes Social History (Updated 02/24/23 @ 20:03 by Campos Mccollum MD) Smoking and tobacco status: never smoked Alcohol intake: never Substance/Drug Use: never Lives independently: Yes Household members: family Housing: House Vitals/I&O/Wt Last Vital Signs Temp 97.9 F 02/24/23 15:00 Pulse 82 02/24/23 18:01 Resp 17 02/24/23 15:42 BP 128/80 02/24/23 18:01 Pulse Ox 98 02/24/23 18:01 O2 Del Method Room Air 02/24/23 18:01 Weight last 48 hrs Weight 86.183 kg Physical Exam Narrative: General: No acute distress, AO x3, dehydrated HEENT: PERRLA, pupils bilaterally equal and reactive Chest: Normal vesicular breath sounds, no added sounds, equal good air entry bilaterally CVS: S1-S2 regular, no murmurs, no tachycardia, no gallops, no rubs Abdomen: Soft, nontender, no organomegaly, bowel sounds present Neuro: No focal deficits, no facial deformity, AO x3, power 5/5 in all limbs Data 02/24/23 15:41 02/24/23 16:08 Other Labs: Radiology Impressions Abdomen/Pelvis CT 02/24/23 15:08 IMPRESSION: 1. Prominent fluid in the small bowel and colon with left colon wall thickening suggestive of an enterocolitis. 2. T12 and L5 vertebral body compression fractures with minimal retropulsion of bony fragments without spinal canal narrowing. 3. Left sacral stimulator. 4. Appendix demonstrates minimal dilation to 6.8 mm without surrounding inflammation, findings are not definitive for appendicitis by CT alone, please correlate clinically. 5. Bibasilar atelectasis. 6. Hepatic steatosis. 7. Cholecystectomy. 8. Spleen enlarged at 13 cm. Laboratory Results WBC 9.02 10^3/uL (3.29-11.43) 02/24/23 15:41 RBC 4.83 10^6/uL (3.85-5.65) 02/24/23 15:41 Hgb 13.80 g/dL (11.27-16.99) 02/24/23 15:41 Hct 40.9 % (36-47) 02/24/23 15:41 MCV 84.7 fl (85-98) L 02/24/23 15:41 MCH 28.6 pg (27-33) 02/24/23 15:41 MCHC 33.7 g/dL (30-55) 02/24/23 15:41 RDW 15.2 % (12.1-15.1) H 02/24/23 15:41 Plt Count 261 10^3/cmm (157-399) 02/24/23 15:41 MPV 10.4 fL (7.4-10.4) 02/24/23 15:41 Lymph % (Auto) Not Reportable 02/24/23 15:41 [place] % (Auto) Not Reportable 02/24/23 15:41 Lymph # (Auto) Not Reportable 02/24/23 15:41 [place] # (Auto) Not Reportable 02/24/23 15:41 Total Counted 100 (0-100) 02/24/23 15:41 Atypical Lymphs % 2.0 % (0-5) 02/24/23 15:41 Absolute Neutrophils 5.4 10^3/cmm (1.4-6.5) 02/24/23 15:41 Segmented Neutrophils 41 % 02/24/23 15:41 Abs Segm Neuts (Man) 3.7 10/cmm (1.6-7.1) 02/24/23 15:41 Band Neutrophils 19.0 % 02/24/23 15:41 Abs Band Neuts (Man) 1.7 10^3/cmm (0.0-1.2) H 02/24/23 15:41 Absolute Lymphocytes 2.0 10^3/cmm (1.2-3.4) 02/24/23 15:41 Lymphocytes (Manual) 20 % 02/24/23 15:41 Monocytes (Manual) 13.0 % 02/24/23 15:41 Absolute Monocytes 1.2 10^3/cmm (0.1-0.6) H 02/24/23 15:41 Eosinophils (Manual) 3 % 02/24/23 15:41 Absolute Eosinophils 0.3 10^3/cmm (0.0-0.7) 02/24/23 15:41 Basophils (Manual) 0.0 % 02/24/23 15:41 Absolute Basophils 0.0 10^3/cmm (0.0-0.2) 02/24/23 15:41 Platelet Estimate Normal (Normal) 02/24/23 15:41 Sodium 129 mmol/L (136-145) L 02/24/23 16:08 Potassium 2.5 mmol/L (3.5-5.1) L* 02/24/23 16:08 Chloride 90 mmol/L (98-107) L 02/24/23 16:08 Carbon Dioxide 25 mmol/L (22-29) 02/24/23 16:08 Anion Gap 16.5 (5-19) 02/24/23 16:08 BUN 22 mg/dL (8-23) 02/24/23 16:08 Creatinine 1.6 mg/dL (0.5-0.9) H 02/24/23 16:08 GFR Calculation 32.7 mL/min (90-130) L 02/24/23 16:08 Glucose 130 mg/dL (65-115) H 02/24/23 16:08 Calculated Osmolality 273 mOsm/kg (285-295) L 02/24/23 16:08 Calcium 8.7 mg/dL (8.5-10.5) 02/24/23 16:08 Magnesium 1.9 mg/dL (1.7-2.3) 02/24/23 16:08 Total Bilirubin 0.9 mg/dL (0.15-1.2) 02/24/23 16:08 AST 31 U/L (0-32) 02/24/23 16:08 ALT 32 U/L (0-33) 02/24/23 16:08 Alkaline Phosphatase 108 U/L (35-105) H 02/24/23 16:08 Total Protein 8.2 g/dL (6.6-8.7) 02/24/23 16:08 Albumin 3.7 g/dL (3.5-5.2) 02/24/23 16:08 Globulin 4.5 g/dL (1.3-4.6) 02/24/23 16:08 Lipase 19 U/L (13-60) 02/24/23 16:08 Procalcitonin 0.55 ng/mL (0-0.5) H 02/24/23 16:08 TSH 3.77 uIU/mL (0.27-4.20) 02/24/23 16:08 Urine Color Yellow (Yellow) 02/24/23 16:32 Urine Appearance Cloudy (CLEAR) A 02/24/23 16:32 Urine pH 5 (5-7) 02/24/23 16:32 Ur Specific [place] 1.020 (1.005-1.030) 02/24/23 16:32 Urine Protein 3+ (Negative) H 02/24/23 16:32 Urine Glucose (UA) Norm (Normal) 02/24/23 16:32 Urine Ketones 1+ (Negative) H 02/24/23 16:32 Urine Blood 3+ (Negative) H 02/24/23 16:32 Urine Nitrate Negative (Negative) 02/24/23 16:32 Urine Bilirubin Neg (Negative) 02/24/23 16:32 Urine Urobilinogen 1 mg/dL (Negative) H 02/24/23 16:32 Ur Leukocyte Esterase 2+ (Negative) H 02/24/23 16:32 Urine RBC 10-15 /hpf (0-2) H 02/24/23 16:32 Urine WBC Too numerous to cnt /hpf (0-5) H 02/24/23 16:32 Ur Squamous Epith Cells 0-4 /hpf (0-5) H 02/24/23 16:32 Amorphous Sediment Not Reportable 02/24/23 16:32 Urine Bacteria Trace /hpf (NONE) 02/24/23 16:32 Micro: Microbiology 02/24/23 17:05 Stool Lactoferrin - Final Stool Occult Blood (FIT) - Final A&P Assessment and plan (1) Gastroenteritis: (2) E-coli UTI: (3) Dehydration: (4) Acute hypokalemia: (5) Hyponatremia: (6) HTN (hypertension): Plan 63-year-old admitted because of electrode normality and WANDA secondary to multiple episodes of diarrhea for last 7 days and development of dysuria for last 2 days. Gastroenteritis: Colitis seen on CT abdomen pelvis. Check stool studies. Start on clear liquid diet. IV hydration with normal saline at 100 cc/h. Empirically start patient on IV ceftriaxone and Flagyl. UTI: Urine culture positive for E. coli which is pansensitive. Ceftriaxone will also take care of the UTI. WANDA: Cannot rule out WANDA on CKD. Creatinine 1.6 today. Do not have recent creatinine in system. Last creatinine from 2012 normal. Most likely in setting of dehydration. Medical reconciliation done for nephrotoxic drugs. Monitor BMP daily. Hyponatremia/hypokalemia: Most likely from dehydration from multiple episodes of diarrhea. Fluid as above. Replete in ER with 60 mEq oral and 20 mg IV. Repeat in AM. Hypertension: Goal blood pressure less than 140/90 MAG. Restart home medications. Clear liquid diet Protonix for PUD prophylaxis Heparin 5000-12 hourly for DVT prophylaxis. Attestations Medical Necessity Statement*: Admission for more than 2 midnights for management of acute kidney injury along with hyponatremia and hypokalemia in setting of dehydration from gastroenteritis, UTI Diagnoses Gastroenteritis K52.9 E-coli UTI N39.0; B96.20 Dehydration E86.0 Acute hypokalemia E87.6 Hyponatremia E87.1 HTN (hypertension) I10
[2023-02-24] MEDS: cefTRIAXone 1,000 MG in sodium chloride 0.9% (plus) 50 ML 100 MG IV (20:08)
[2023-02-24 20:39] LABS: Procalcitonin 0.55 ng/mL (0-0.5)
[2023-02-24] MEDS: heparin 5,000 unit/mL INJ 1 mL 5000 UNIT SUBCUT (21:49)
[2023-02-24] MEDS: pantoprazole 40 mg SDV IVP (21:49)
[2023-02-24] MEDS: gabapentin 100 mg Capsule PO (21:49)
[2023-02-24 21:50] LABS: Thyroid Stimulating Hormone 3.77 uIU/mL (0.27-4.20)
[2023-02-24] MEDS: sodium chloride 0.9% 1,000 ML 100 ML IV (21:50)
[2023-02-24 23:27] LABS: Vitamin B12 480 pg/mL (232-1245)
[2023-02-24] MEDS: metroNIDAZOLE IV 500 MG/100 ML PREMIX 100 MG IV (23:49)
[2023-02-25] VITALS (10 sets, daily range): BP systolic 99–146; BP diastolic 57–84; PULSE 72–82; RESP 14–17; TEMP 36.2–36.9; O2SAT 97–99
[2023-02-25 05:44] LABS: Basophils # 0.1 10^3/uL (0.0-0.1); Basophils % 1.2 %; Eosinophils # 0.1 10^3/uL (0.0-0.8); Eosinophils % 1.2 %; Hematocrit 38.8 % (36-47); Lymphocytes # 1.5 10^3/uL (0.8-4.8); Lymphocytes % 16.3 %; Mean Corpuscular Volume 90.7 fl (85-98); Mean Platelet Volume 10.1 fL (7.4-10.4); Monocytes # 2.2 10^3/uL (0.2-0.9); Monocytes % 24.9 %; Neutrophils # 4.95 10^3/uL (1.8-7.7); Neutrophils % 55.9 %; Nucleated Red Blood Cells % 0 %; Platelet Count 192 10^3/cmm (157-399); Red Blood Count 4.28 10^6/uL (3.85-5.65); Red Cell Distribution Width 15.3 % (12.1-15.1); White Blood Count 8.87 10^3/uL (3.29-11.43)
[2023-02-25] MEDS: ondansetron 2 mg/ML SDV 2 mL 4 MG IVP (05:55)
[2023-02-25] MEDS: sodium chloride 0.9% 1,000 ML 100 ML IV ×2 (05:55→20:41)
[2023-02-25 06:12] LABS: Slide Review Slide Review Perform
[2023-02-25 06:19] LABS: Alanine Aminotransferase 29 U/L (0-33); Alkaline Phosphatase 95 U/L (35-105); Blood Urea Nitrogen 22 mg/dL (8-23); Calcium 8.2 mg/dL (8.5-10.5); Carbon Dioxide 21 mmol/L (22-29); Chloride 96 mmol/L (98-107); Globulin 4.4 g/dL (1.3-4.6); Glomerular Filtration Rate 45.5 mL/min (90-130); Glucose 97 mg/dL (65-115); Magnesium 1.9 mg/dL (1.7-2.3); Osmolality Calculated 273 mOsm/kg (285-295); Phosphorus 1.9 mg/dL (2.5-4.5); Sodium 130 mmol/L (136-145); Total Bilirubin 0.6 mg/dL (0.15-1.2); Total Protein 7.4 g/dL (6.6-8.7)
[2023-02-25 06:26] LABS: Estmated Average Glucose 120; Hemoglobin A1C 5.8 % (4.0-6.0)
[2023-02-25 06:32] LABS: Anion Gap 16.2 (5-19); Potassium 3.2 mmol/L (3.5-5.1)
[2023-02-25 06:33] LABS: Aspartate Amino Transferase 34 U/L (0-32); Chol HDL Ratio 3.71 mg/dL (0.0-4.40); Cholesterol 78 mg/dL (0-200); HDL Cholesterol 21 mg/dL (60-100); LDL Cholesterol Calculated 33 mg/dL (50-129); LDL HDL Ratio 1.57 RATIO (0.00-3.22); Triglycerides 120 mg/dL (0-150)
[2023-02-25 06:36] LABS: Folate Level 18.4 ng/mL (4.8-37.3)
[2023-02-25] MEDS: morphine 4 mg/mL SDV 1 mL 2 MG IVP (08:44)
[2023-02-25] MEDS: heparin 5,000 unit/mL INJ 1 mL 5000 UNIT SUBCUT ×2 (08:45→20:41)
[2023-02-25] MEDS: metroNIDAZOLE IV 500 MG/100 ML PREMIX 100 MG IV ×3 (08:45→22:59)
[2023-02-25] MEDS: gabapentin 100 mg Capsule PO ×3 (08:46→20:41)
[2023-02-25] MEDS: venlafaxine ER (24HR) 150 mg Capsule PO (08:46)
[2023-02-25] MEDS: potassium chloride ER 20 mEq Tablet 40 MEQ PO ×2 (08:46→17:31)
--- NOTE | 2023-02-25 10:36 | PC.CHAP ---
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 [] Patient/Family/Request visit [] Outpatient visit [] Follow-up visit [] Physician referral [] Code/Alert [x] Routine visit [] Staff referral [] Actively dying [] Patient sleeping [] Family support [] [] Out of room [] Palliative care [] [] Receiving care in room [] Pre-surgical visit [] Trauma [] Long length of stay [] ICU visit [] Other: Relational/Emotional Strength [] Patient feels connected with others/family/visitors/staff [] Distress [] Loneliness/isolation [] Abandonment Spirituality of Patient [] Person of Teresa [] Attends Buddhist of their Teresa [] Believes in Prayer [] Reads Bible or Jehovah'S Witness materials [] There are Spiritual issues to be addressed Tank Setter Interventions [] Prayer [] Active listening [] Non-anxious presence [] Spiritual/emotional support [] Crisis/trauma care [] Spiritual counseling [] Bereavement support [] Provided bereavement packet [] Provided Bible/devotional materials [] Provided toy/stuffed animal, coloring book to patient or family member [] Provided Communion [] Anointing/[place] [] Salvation [] Completed spiritual assessment [] Other: Impact on Illness or Injury [] Angry [] Fearful [] Anxious [] Often cries [] Exhaustion [] Unable to work [] Unable to attend adventism [] Unable to walk/stand [] Unable to read [] Unable to drive [] Unable to eat/drink [] Unable to sleep [] Unable to be with family [] Patient intubated [] Other: Summary Declined women's studies professor visit Time spent with patient 5 mins
--- NOTE | 2023-02-25 13:48 | P.PN_ITS ---
Subjective Subjective: Patient states she continues to have multiple episodes of soft to watery bowel movements but is feeling better than yesterday. States he is feeling stronger and denies having any further cramps. Otherwise has remained hemodynamically stable and afebrile. Blood work appreciated for stable CBC, CMP showing hyponatremia, hypokalemia but improving, improving creatinine down to 1.2, hypophosphatemia, urine cultures growing gram-negative rods. Vitals/I&O/Wt Last Vital Signs Temp 97.2 F L 02/25/23 11:01 Pulse 82 02/25/23 11:01 Resp 17 02/25/23 11:01 BP 112/57 02/25/23 11:01 Pulse Ox 97 02/25/23 11:01 O2 Del Method Room Air 02/25/23 04:14 02/24/23 02/25/23 02/25/23 22:59 06:59 14:59 Intake Total 1150 / 1150 1908.333 / 3058.333 100 / 100 Balance 1150 / 1150 1908.333 / 3058.333 100 / 100 Weight last 48 hrs Weight 86.239 kg Weight 86.183 kg Physical Exam Narrative: General: No acute distress, AO x3, dehydrated HEENT: PERRLA, pupils bilaterally equal and reactive Chest: Normal vesicular breath sounds, no added sounds, equal good air entry bilaterally CVS: S1-S2 regular, no murmurs, no tachycardia, no gallops, no rubs Abdomen: Soft, nontender, no organomegaly, bowel sounds present Neuro: No focal deficits, no facial deformity, AO x3, power 5/5 in all limbs Data 02/25/23 05:15 02/25/23 05:15 Micro: Microbiology 02/24/23 16:32 Urine Culture - Preliminary Urine,Clean Catch Gram Negative Rods 02/24/23 17:05 Stool Lactoferrin - Final Stool Occult Blood (FIT) - Final A&P Assessment and plan (1) Gastroenteritis: (2) E-coli UTI: (3) Dehydration: (4) Acute hypokalemia: (5) Hyponatremia: (6) HTN (hypertension): Plan 63-year-old admitted because of electrode normality and WANDA secondary to multiple episodes of diarrhea for last 7 days and development of dysuria for las t 2 days. Gastroenteritis: Colitis seen on CT abdomen pelvis. Stool studies awaited. If C. difficile negative can use Imodium. Advance to mechanical soft diet IV hydration with normal saline at 100 cc/h. Continue with IV ceftriaxone and Flagyl for now. UTI: Urine culture positive for E. coli which is pansensitive. Ceftriaxone will also take care of the UTI. WANDA: Do not have baseline creatinine. Last creatinine from 2012 normal. Creatinine trending down to 1.2 today. Most likely in setting of dehydration. Medical reconciliation done for nephrotoxic drugs. Monitor BMP daily. Hyponatremia/hypokalemia: Most likely from dehydration from multiple episodes of diarrhea. Fluid as above. Continue with home dose of potassium 40 mg twice daily. Add 80 mg orally Repeat in evening. Hypertension: Goal blood pressure less than 140/90 mmHg. Continue other home medications. Clear liquid diet Protonix for PUD prophylaxis Heparin 5000-12 hourly for DVT prophylaxis. Attestations Medical Necessity Statement*: Requires further hospitalization for management of gastroenteritis leading to acute kidney injury with hyponatremia and hypokalemia while stool studies are awaited and electrolytes are repleted Diagnoses Gastroenteritis K52.9 E-coli UTI N39.0; B96.20 Dehydration E86.0 Acute hypokalemia E87.6 Hyponatremia E87.1 HTN (hypertension) I10
[2023-02-25] MEDS: potassium chloride ER 20 mEq Tablet 80 MEQ PO (15:15)
[2023-02-25] MEDS: atorvastatin 40 mg Tablet 20 MG PO (17:31)
[2023-02-25] MEDS: clopidogrel 75 mg Tablet PO (17:31)
[2023-02-25] MEDS: pantoprazole 40 mg SDV IVP (20:42)
[2023-02-25] MEDS: cefTRIAXone 1,000 MG in sodium chloride 0.9% (plus) 50 ML 100 MG IV (20:42)
[2023-02-25 21:38] LABS: Potassium 3.1 mmol/L (3.5-5.1)
[2023-02-26] VITALS (7 sets, daily range): BP systolic 99–153; BP diastolic 51–67; PULSE 66–86; RESP 13–16; TEMP 36.6–36.9; O2SAT 96–98
[2023-02-26 05:08] LABS: Basophils # 0.1 10^3/uL (0.0-0.1); Basophils % 0.8 %; Eosinophils # 0.2 10^3/uL (0.0-0.8); Eosinophils % 2.5 %; Hematocrit 31.4 % (36-47); Lymphocytes # 1.5 10^3/uL (0.8-4.8); Lymphocytes % 23.7 %; Mean Corpuscular HGB Conc 33.1 g/dL (30-55); Mean Corpuscular Hemoglobin 28.7 pg (27-33); Mean Corpuscular Volume 86.7 fl (85-98); Mean Platelet Volume 9.8 fL (7.4-10.4); Monocytes # 1.1 10^3/uL (0.2-0.9); Neutrophils # 3.43 10^3/uL (1.8-7.7); Neutrophils % 54.4 %; Nucleated Red Blood Cells % 0 %; Platelet Count 178 10^3/cmm (157-399); Red Blood Count 3.62 10^6/uL (3.85-5.65); Red Cell Distribution Width 15.5 % (12.1-15.1); White Blood Count 6.32 10^3/uL (3.29-11.43)
[2023-02-26 05:29] LABS: Alanine Aminotransferase 24 U/L (0-33); Alkaline Phosphatase 80 U/L (35-105); Aspartate Amino Transferase 26 U/L (0-32); Blood Urea Nitrogen 14 mg/dL (8-23); Calcium 8.1 mg/dL (8.5-10.5); Carbon Dioxide 23 mmol/L (22-29); Chloride 104 mmol/L (98-107); Globulin 3.4 g/dL (1.3-4.6); Glomerular Filtration Rate 56.2 mL/min (90-130); Glucose 88 mg/dL (65-115); Osmolality Calculated 282 mOsm/kg (285-295); Sodium 136 mmol/L (136-145); Total Bilirubin 0.3 mg/dL (0.15-1.2); Total Protein 6.4 g/dL (6.6-8.7)
[2023-02-26 05:33] LABS: Anion Gap 12.2 (5-19); Creatinine Clr Calc Pharmacy 60.7157; Potassium 3.2 mmol/L (3.5-5.1)
[2023-02-26] MEDS: venlafaxine ER (24HR) 150 mg Capsule PO (08:54)
[2023-02-26] MEDS: potassium chloride ER 20 mEq Tablet 40 MEQ PO ×3 (08:54→17:00)
[2023-02-26] MEDS: heparin 5,000 unit/mL INJ 1 mL 5000 UNIT SUBCUT ×2 (08:54→21:23)
[2023-02-26] MEDS: gabapentin 100 mg Capsule PO ×3 (08:54→21:23)
[2023-02-26] MEDS: metroNIDAZOLE IV 500 MG/100 ML PREMIX 100 MG IV (08:55)
--- NOTE | 2023-02-26 11:29 | PC.SOCIAL ---
Pg 2 IMM Explained to pt Pg 2 IMM. No questions voiced. Provided pt a copy. Initialed, dated, & timed a copy & placed in chart.
--- NOTE | 2023-02-26 11:50 | P.PN_ITS ---
Subjective Subjective: No acute events overnight. Patient continues to have episodes of diarrhea. States she is feeling slightly better. Patient is extremely frustrated as stool studies are still awaited. Explained to her in detail that currently the stool studies are being sent out from the hospital and it might take up to 2 to 3 days for the results to come back though she is already being started on IV antibio tics but Imodium is not recommended till C. difficile is ruled out. Blood work appreciated for stable CBC, hemoglobin down to 10.4 from 12.4 yesterday, CMP showing resolution of WANDA with creatinine down to 1, resolution of hyponatremia, mild hypokalemia with potassium down to 3.2 Vitals/I&O/Wt Last Vital Signs Temp 98.0 F 02/26/23 11:43 Pulse 78 02/26/23 11:43 Resp 16 02/26/23 11:43 BP 99/51 02/26/23 11:43 Pulse Ox 98 02/26/23 11:43 O2 Del Method Room Air 02/26/23 11:43 02/25/23 02/26/23 02/26/23 22:59 06:59 14:59 Intake Total 1150 / 1250 100 / 1350 100 / 100 Output Total 2 / 2 300 / 302 Balance 1148 / 1248 -200 / 1048 100 / 100 Weight last 48 hrs Weight 88.541 kg Weight 86.239 kg Weight 86.183 kg Physical Exam Narrative: General: No acute distress, AO x3, HEENT: PERRLA, pupils bilaterally equal and reactive Chest: Normal vesicular breath sounds, no added sounds, equal good air entry bilaterally CVS: S1-S2 regular, no murmurs, no tachycardia, no gallops, no rubs Abdomen: Soft, nontender, no organomegaly, bowel sounds present Neuro: No focal deficits, no facial deformity, AO x3, power 5/5 in all limbs Data 02/26/23 04:45 02/26/23 04:45 Micro: Microbiology 02/24/23 16:32 Urine Culture - Final Urine,Clean Catch Salmonella enterica A&P Assessment and plan (1) Gastroenteritis: (2) E-coli UTI: (3) Dehydration: (4) Acute hypokalemia: (5) Hyponatremia: (6) HTN (hypertension): Plan 63-year-old admitted because of electrode normality and WANDA secondary to multiple episodes of diarrhea for last 7 days and development of dysuria for la st 2 days. Gastroenteritis: Colitis seen on CT abdomen pelvis. Stool studies awaited. If C. difficile negative can use Imodium. Told by the lab that it might take up to 1 to 3 days currently as stool studies have been sent out. Urine cultures for patient to growing Salmonella enterica. Most likely you have stool contaminant given patient having diarrhea and UTI at the same time. It would be safe to imagine that patient's gastroenteritis is also Salmonella. Continue with IV ceftriaxone as per culture sensitivities. Continue with Flagyl. Check blood culture. Continue with normal saline at 100 cc/h. Replete potassium with 80 mEq oral. Repeat BMP in AM. Advance to regular diet. UTI: As above. WANDA: Resolved. Creatinine down to 1.0. Most likely in setting of dehydration. Medical reconciliation done for nephrotoxic drugs. Monitor BMP daily. Hyponatremia/hypokalemia: Hyponatremia resolved. Repeating potassium as above. Most likely from dehydration from multiple episodes of diarrhea. Monitor BMP daily. Hypertension: Goal blood pressure less than 140/90 mmHg. Continue other home medications. Regular diet. Protonix for PUD prophylaxis Heparin 5000-12 hourly for DVT prophylaxis. Attestations Medical Necessity Statement*: Requires further hospitalization for management of Salmonella gastroenteritis, hypokalemia, resolving WANDA Diagnoses Gastroenteritis K52.9 E-coli UTI N39.0; B96.20 Dehydration E86.0 Acute hypokalemia E87.6 Hyponatremia E87.1 HTN (hypertension) I10
[2023-02-26] MEDS: cefTRIAXone 2,000 MG in sodium chloride 0.9% (plus) 50 ML 100 MG IV (15:00)
[2023-02-26] MEDS: sodium chloride 0.9% 1,000 ML 100 ML IV (15:01)
[2023-02-26] MEDS: atorvastatin 40 mg Tablet 20 MG PO (17:00)
[2023-02-26] MEDS: tizanidine 4 mg Tablet PO (17:04)
[2023-02-26] MEDS: acetaminophen 325 mg Tablet 650 MG PO (17:04)
[2023-02-26] MEDS: pantoprazole 40 mg SDV IVP (21:23)
[2023-02-27 03:44] VITALS: BP 131/55; PULSE 61; RESP 14; TEMP 36.8; O2SAT 97
[2023-02-27] MEDS: sodium chloride 0.9% 1,000 ML 100 ML IV (05:01)
[2023-02-27 05:12] LABS: Basophils # 0.1 10^3/uL (0.0-0.1); Basophils % 0.9 %; Eosinophils # 0.2 10^3/uL (0.0-0.8); Eosinophils % 3.3 %; Hematocrit 36.7 % (36-47); Lymphocytes # 1.9 10^3/uL (0.8-4.8); Lymphocytes % 28.2 %; Mean Corpuscular HGB Conc 31.1 g/dL (30-55); Mean Corpuscular Hemoglobin 28.2 pg (27-33); Mean Corpuscular Volume 90.8 fl (85-98); Mean Platelet Volume 9.7 fL (7.4-10.4); Monocytes # 0.7 10^3/uL (0.2-0.9); Monocytes % 10.8 %; Neutrophils # 3.72 10^3/uL (1.8-7.7); Neutrophils % 55.2 %; Nucleated Red Blood Cells % 0 %; Platelet Count 235 10^3/cmm (157-399); Red Blood Count 4.04 10^6/uL (3.85-5.65); Red Cell Distribution Width 15.9 % (12.1-15.1); White Blood Count 6.74 10^3/uL (3.29-11.43)
[2023-02-27 05:43] LABS: Alanine Aminotransferase 24 U/L (0-33); Albumin Level 3.2 g/dL (3.5-5.2); Alkaline Phosphatase 78 U/L (35-105); Anion Gap 10.4 (5-19); Aspartate Amino Transferase 30 U/L (0-32); Blood Urea Nitrogen 10 mg/dL (8-23); Carbon Dioxide 22 mmol/L (22-29); Chloride 106 mmol/L (98-107); Globulin 3.2 g/dL (1.3-4.6); Glomerular Filtration Rate 50.3 mL/min (90-130); Glucose 77 mg/dL (65-115); Osmolality Calculated 278 mOsm/kg (285-295); Potassium 3.4 mmol/L (3.5-5.1); Sodium 135 mmol/L (136-145); Total Bilirubin 0.3 mg/dL (0.15-1.2); Total Protein 6.4 g/dL (6.6-8.7)
[2023-02-27 08:29] VITALS: BP 116/63; PULSE 65; RESP 18; TEMP 36.2; O2SAT 99
[2023-02-27] MEDS: gabapentin 100 mg Capsule PO (09:49)
[2023-02-27] MEDS: venlafaxine ER (24HR) 150 mg Capsule PO (09:49)
--- NOTE | 2023-02-27 09:49 | PM.DCS ---
Discharge Providers Date of Admission: 02/24/23 21:17 Date of Discharge: February 27, 2023 Attending Provider at Admission: Campos Mccollum MD Attending Provider at Discharge: Campos Mccollum MD Diagnoses at Discharge Discharge Diagnosis (1) Gastroenteritis: Status: Acute (2) E-coli UTI: Status: Acute (3) Dehydration: Status: Acute (4) Acute hypokalemia: Status: Acute (5) Hyponatremia: Status: Acute (6) HTN (hypertension): Status: Acute (7) Salmonella gastroenteritis: Status: Acute Reason for Visit Reason for Visit: N/V/D Hospital Course Hospital Course Darby Rivera is a 63 year old female with past medical history of hypertension presented to the ER on Wednesday with ongoing diarrhea for last 7 to 10 days.? As per patient she has had multiple episodes of soft to watery bowel movements for last 7 to 10 days along with development of dizziness, weakness, lethargy and cramps for left 2 days.? Patient presented to the ER today because the weakness was worsening.? She reports poor oral intake because of nausea.? For last 2 days she is also complaining of dysuria.? Patient came to the ER on Wednesday (2 day is wednesday) and was sent home after taking urine culture on oral hydration.? Urine culture from that day is growing E. coli which is pansensitive. Patient was admitted to the hospital further evaluation and management of dehydration and along with hyponatremia, hypokalemia, WANDA in setting of severe diarrhea. Stool studies were sent out and she was started on IV hydration, electrolyte replacement and antibiotics. Stool studies are still pending though urine cultures came back positive for Salmonella enteritica. With IV hydration and recorder placement patient's symptoms of dehydration and electrolyte became more stable. Blood cultures have been sent out. Patient has been afebrile and back to her baseline for more than 48 hours. She has been discharged on oral ciprofloxacin twice daily for next 5 days. She is advised to not take her hydrochlorothiazide and tolterodine for next 2 weeks. She advised to continue taking her potassium 20 mEq twice daily along with high potassium diet. She is to follow-up with her primary care provider onsite appointment for repeat BMP. Physical Exam Narrative: General: No acute distress, AO x3, HEENT: PERRLA, pupils bilaterally equal and reactive Chest: Normal vesicular breath sounds, no added sounds, equal good air entry bilaterally CVS: S1-S2 regular, no murmurs, no tachycardia, no gallops, no rubs Abdomen: Soft, nontender, no organomegaly, bowel sounds present Neuro: No focal deficits, no facial deformity, AO x3, power 5/5 in all limbs Discharge Data Studies Completed and Pending Completed Studies During Hospitalization Category Date Time Status CT abdomen pelvis w con* [id number] Stat Cat Scan 02/24/23 15:08 Completed Pending at discharge Category Date Time Status Blood Culture Stat Lab 02/26/23 11:58 Results Clostridium Diffi Toxin Reflex Routine Lab 02/24/23 17:05 Received OVA and Parasites, Conc and PE Routine Lab 02/24/23 17:05 Received Salmonella / Shigella / Campy Routine Lab 02/24/23 17:05 Received Radiology Impressions Abdomen/Pelvis CT 02/24/23 15:08 IMPRESSION: 1. Prominent fluid in the small bowel and colon with left colon wall thickening suggestive of an enterocolitis. 2. T12 and L5 vertebral body compression fractures with minimal retropulsion of bony fragments without spinal canal narrowing. 3. Left sacral stimulator. 4. Appendix demonstrates minimal dilation to 6.8 mm without surrounding inflammation, findings are not definitive for appendicitis by CT alone, please correlate clinically. 5. Bibasilar atelectasis. 6. Hepatic steatosis. 7. Cholecystectomy. 8. Spleen enlarged at 13 cm. Microbiology 02/26/23 11:58 Blood Blood Culture - Preliminary NEGATIVE TO DATE 02/26/23 11:50 Blood Blood Culture - Preliminary NEGATIVE TO DATE 02/24/23 16:32 Urine,Clean Catch Urine Culture - Final Salmonella enterica 02/24/23 17:05 Stool Stool Lactoferrin - Final 02/24/23 17:05 Stool Occult Blood (FIT) - Final Laboratory Results WBC 6.74 10^3/uL (3.29-11.43) 02/27/23 04:49 RBC 4.04 10^6/uL (3.85-5.65) 02/27/23 04:49 Hgb 11.40 g/dL (11.27-16.99) 02/27/23 04:49 Hct 36.7 % (36-47) 02/27/23 04:49 MCV 90.8 fl (85-98) 02/27/23 04:49 MCH 28.2 pg (27-33) 02/27/23 04:49 MCHC 31.1 g/dL (30-55) D 02/27/23 04:49 RDW 15.9 % (12.1-15.1) H 02/27/23 04:49 Plt Count 235 10^3/cmm (157-399) D 02/27/23 04:49 MPV 9.7 fL (7.4-10.4) 02/27/23 04:49 Neut % (Auto) 55.2 % 02/27/23 04:49 Lymph % (Auto) 28.2 % 02/27/23 04:49 [place] % (Auto) 10.8 % 02/27/23 04:49 Eos % (Auto) 3.3 % 02/27/23 04:49 Baso % (Auto) 0.9 % 02/27/23 04:49 Neut # (Auto) 3.72 10^3/uL (1.8-7.7) 02/27/23 04:49 Lymph # (Auto) 1.9 10^3/uL (0.8-4.8) 02/27/23 04:49 [place] # (Auto) 0.7 10^3/uL (0.2-0.9) 02/27/23 04:49 Eos # (Auto) 0.2 10^3/uL (0.0-0.8) 02/27/23 04:49 Baso # (Auto) 0.1 10^3/uL (0.0-0.1) 02/27/23 04:49 Nucleated RBC % (auto) 0 % 02/27/23 04:49 Total Counted 100 (0-100) 02/24/23 15:41 Atypical Lymphs % 2.0 % (0-5) 02/24/23 15:41 Absolute Neutrophils 5.4 10^3/cmm (1.4-6.5) 02/24/23 15:41 Segmented Neutrophils 41 % 02/24/23 15:41 Abs Segm Neuts (Man) 3.7 10/cmm (1.6-7.1) 02/24/23 15:41 Band Neutrophils 19.0 % 02/24/23 15:41 Abs Band Neuts (Man) 1.7 10^3/cmm (0.0-1.2) H 02/24/23 15:41 Absolute Lymphocytes 2.0 10^3/cmm (1.2-3.4) 02/24/23 15:41 Lymphocytes (Manual) 20 % 02/24/23 15:41 Monocytes (Manual) 13.0 % 02/24/23 15:41 Absolute Monocytes 1.2 10^3/cmm (0.1-0.6) H 02/24/23 15:41 Eosinophils (Manual) 3 % 02/24/23 15:41 Absolute Eosinophils 0.3 10^3/cmm (0.0-0.7) 02/24/23 15:41 Basophils (Manual) 0.0 % 02/24/23 15:41 Absolute Basophils 0.0 10^3/cmm (0.0-0.2) 02/24/23 15:41 Nucleated RBCs # 0.0 /100WBC 02/27/23 04:49 Platelet Estimate Normal (Normal) 02/24/23 15:41 Sodium 135 mmol/L (136-145) L 02/27/23 04:49 Potassium 3.4 mmol/L (3.5-5.1) L 02/27/23 04:49 Chloride 106 mmol/L (98-107) 02/27/23 04:49 Carbon Dioxide 22 mmol/L (22-29) 02/27/23 04:49 Anion Gap 10.4 (5-19) 02/27/23 04:49 BUN 10 mg/dL (8-23) 02/27/23 04:49 Creatinine 1.1 mg/dL (0.5-0.9) H 02/27/23 04:49 GFR Calculation 50.3 mL/min (90-130) L 02/27/23 04:49 Glucose 77 mg/dL (65-115) 02/27/23 04:49 Estimat Average Glucose 120 02/24/23 15:41 Hemoglobin A1c 5.8 % (4.0-6.0) 02/24/23 15:41 Calculated Osmolality 278 mOsm/kg (285-295) L 02/27/23 04:49 Calcium 8.0 mg/dL (8.5-10.5) L 02/27/23 04:49 Phosphorus 1.9 mg/dL (2.5-4.5) L 02/25/23 05:15 Magnesium 1.9 mg/dL (1.7-2.3) 02/25/23 05:15 Total Bilirubin 0.3 mg/dL (0.15-1.2) 02/27/23 04:49 AST 30 U/L (0-32) 02/27/23 04:49 ALT 24 U/L (0-33) 02/27/23 04:49 Alkaline Phosphatase 78 U/L (35-105) 02/27/23 04:49 Total Protein 6.4 g/dL (6.6-8.7) L 02/27/23 04:49 Albumin 3.2 g/dL (3.5-5.2) L 02/27/23 04:49 Globulin 3.2 g/dL (1.3-4.6) 02/27/23 04:49 Triglycerides 120 mg/dL (0-150) 02/25/23 05:15 Cholesterol 78 mg/dL (0-200) 02/25/23 05:15 LDL Cholesterol, Calc 33 mg/dL (50-129) L 02/25/23 05:15 HDL Cholesterol 21 mg/dL (60-100) L 02/25/23 05:15 LDL/HDL Ratio 1.57 RATIO (0.00-3.22) 02/25/23 05:15 Cholesterol/HDL Ratio 3.71 mg/dL (0.0-4.40) 02/25/23 05:15 Lipase 19 U/L (13-60) 02/24/23 16:08 Vitamin B12 480 pg/mL (232-1245) 02/24/23 16:08 Folate 18.4 ng/mL (4.8-37.3) 02/25/23 05:15 Procalcitonin 0.55 ng/mL (0-0.5) H 02/24/23 16:08 TSH 3.77 uIU/mL (0.27-4.20) 02/24/23 16:08 Urine Color Yellow (Yellow) 02/24/23 16:32 Urine Appearance Cloudy (CLEAR) A 02/24/23 16:32 Urine pH 5 (5-7) 02/24/23 16:32 Ur Specific [place] 1.020 (1.005-1.030) 02/24/23 16:32 Urine Protein 3+ (Negative) H 02/24/23 16:32 Urine Glucose (UA) Norm (Normal) 02/24/23 16:32 Urine Ketones 1+ (Negative) H 02/24/23 16:32 Urine Blood 3+ (Negative) H 02/24/23 16:32 Urine Nitrate Negative (Negative) 02/24/23 16:32 Urine Bilirubin Neg (Negative) 02/24/23 16:32 Urine Urobilinogen 1 mg/dL (Negative) H 02/24/23 16:32 Ur Leukocyte Esterase 2+ (Negative) H 02/24/23 16:32 Urine RBC 10-15 /hpf (0-2) H 02/24/23 16:32 Urine WBC Too numerous to cnt /hpf (0-5) H 02/24/23 16:32 Ur Squamous Epith Cells 0-4 /hpf (0-5) H 02/24/23 16:32 Amorphous Sediment Not Reportable 02/24/23 16:32 Urine Bacteria Trace /hpf (NONE) 02/24/23 16:32 Vitals Last Vital Signs Temp 97.2 F L 02/27/23 08:29 Pulse 65 02/27/23 08:29 Resp 18 02/27/23 08:29 BP 116/63 02/27/23 08:29 Pulse Ox 99 02/27/23 08:29 O2 Del Method Room Air 02/27/23 08:29 Discharge Plan Discharge Patient Disposition: Home Condition: Stable Prescriptions: New ciprofloxacin HCl 500 mg tablet 500 mg PO Q12H Qty: 14 0RF Continued ondansetron 4 mg tablet,disintegrating 4 mg PO Q8H PRN (Reason: nausea and vomiting) Qty: 14 0RF atorvastatin 20 mg tablet 20 mg PO QPM tizanidine 4 mg tablet 4 mg PO Q8H PRN (Reason: Muscle Spasm) venlafaxine 150 mg capsule,extended release 24hr 150 mg PO DAILY clopidogrel 75 mg tablet 75 mg PO QPM pantoprazole 20 mg tablet,delayed release (DR/EC) 20 mg PO DAILY potassium chloride 20 mEq tablet,ER particles/crystals 20 meq PO BID rizatriptan 10 mg tablet,disintegrating 10 mg PO Q8H PRN (Reason: Migraine Headache) gabapentin 100 mg capsule 100 mg PO TID Held tolterodine 4 mg capsule,extended release 24hr 4 mg PO DAILY Hold Instructions: Resume on 03/12/23. hydrochlorothiazide 25 mg tablet 25 mg PO DAILY Hold Instructions: Resume on 03/12/23. Discharge Orders: Discharge Order (Routine); Ordered 02/27/23 Ordered By: Campos Mccollum Referrals: Rosa M Good NP [Nurse Practitioner] - 03/02/23 2:00 pm Discharge Diet: Regular Discharge Activity: Resume usual activity and Increase activity as tolerated Patient Instructions: Dehydration - Adult, Dehydration (DC), Gastroenteritis (DC), Chronic Hypertension (DC), Opioid Safety Activity Restrictions/Additional Instructions: She will be on antibiotics going forward. Antibiotic will be ciprofloxacin twice daily for next 5 days. She is advised to not take her hydrochlorothiazide and tolterodine for next 2 weeks. She advised to continue taking her potassium 20 mEq twice daily along with high potassium diet. She is to make sure she maintains hydration with at least 1500 cc to 2 L of liquid daily. She is to follow-up with her primary care provider onsite appointment for repeat BMP. Discharge Attestations Time Spent in Discharge Care*: greater than 30 min Specific Discharge Activities: educating patient, educating and/or supporting family/caregiver, discussing with pcp/other providers, discussing with continuous pillowcase cutter/social workers/dc planners, documenting/other paperwork and evaluating patient/reviewing data Status at Discharge: Cognitive status at discharge: cognitively intact, Behavioral status at discharge: cooperative, Functional status at discharge: independent ambulation, Overall status at discharge: patient is progressing back to baseline Quality Metrics Clinical Quality Measures [ No reported AMI, CVA or VTE this stay] Coding Level of Care Code 42824 Total time (in minutes) for Discharge: 55 Diagnoses Gastroenteritis K52.9 E-coli UTI N39.0; B96.20 Dehydration E86.0 Acute hypokalemia E87.6 Hyponatremia E87.1 HTN (hypertension) I10 Salmonella gastroenteritis A02.0
[2023-02-27] MEDS: potassium chloride ER 20 mEq Tablet 40 MEQ PO (09:50)
[2023-02-27] MEDS: heparin 5,000 unit/mL INJ 1 mL 5000 UNIT SUBCUT (09:50)
[2023-02-27 10:00] VITALS: BMI 34.5
[2023-02-27 12:10] VITALS: BP 104/62; PULSE 57; RESP 16; TEMP 36.4; O2SAT 95
[2023-02-27] MEDS: loperamide 2 mg Capsule 4 MG PO (12:28)
[2023-02-27 13:16] VITALS: BP 104/62; PULSE 57; RESP 16; TEMP 36.4; O2SAT 95
== END 2023-02-27 12:50 | disposition home or self-care (01) | DRG 372 ==
LOC: ER 19:29 → MEDSURG 02-25 07:04
PROVIDERS: Physician Assistant; Admitting Provider Student in an Organized Health Care Education/Training Program; Emergency Provider Emergency Medicine; Visit Provider Student in an Organized Health Care Education/Training Program
DX: A02.0 Salmonella enteritis (principal); E87.1 Hypo-osmolality and hyponatremia; N17.9 Acute kidney failure, unspecified; N39.0 Urinary tract infection, site not specified; K52.9 Noninfective gastroenteritis and colitis, unspecified; B96.20 Unspecified Escherichia coli [E. coli] as the cause of diseases classified elsewhere; E86.0 Dehydration; I10 Essential (primary) hypertension; Z79.02 Long term (current) use of antithrombotics/antiplatelets
CPT/HCPCS: 36415; 74177; 80053; 80061; 81001; 82274; 82607; 82746; 83036; 83630; 83690; 83735; 84100; 84132; 84145; 84443; 85007; 85025; 87040; 87045; 87077; 87086; 87177; 87186; 87209; 87324; 87427; 87449; 94664; 96361; 96365; 96367; 96372; 96374; 96375; 99284; 99285; C9113; J0696; J1644; J2270; J2405; J3480; J3490; J7030; Q9967

== ENCOUNTER → 2023-03-02 15:23 | Outpatient (BNVA) | payer MEDICARE, MEDICAID, SELFPAY | PROVIDERS: Visit Provider Nurse Practitioner Family | DX: E87.6 Hypokalemia (principal) | CPT/HCPCS: 80053 ==

== ENCOUNTER 2023-07-17 13:51 | Emergency (ER) | payer MEDICARE, MEDICAID, SELFPAY ==
[2023-07-17] VITALS (8 sets, daily range): BP systolic 118–149; BP diastolic 59–92; PULSE 78–96; RESP 16; TEMP 36.7; O2SAT 91–97
--- NOTE | 2023-07-17 13:54 | XRR_ITS ---
PROCEDURE INFORMATION: Exam: XR Left Hip Exam date and time: 07/17/2023 2:00 PM Age: 63 years old Clinical indication: Injury or trauma; Blunt trauma (contusions or hematomas); Injury date: 07/17/23; Patient HX: Fall; C/O pain left hip/low back/tailbone TECHNIQUE: Imaging protocol: Radiologic exam of the left hip. Views: 2 or 3 views hip with pelvis when performed. COMPARISON: CT abdomen pelvis w con* [id number] 02/24/2023 5:38 PM FINDINGS: Tubes, catheters and devices: Spinal stimulator is in place. Bones/joints: SI joints are unremarkable. Suggestion of focal posterior acetabular over coverage at both hips, which in the appropriate clinical setting can be associated with pincer type femoroacetabular impingement. Clinically correlate. Mild left hip DJD. No findings of recent/displaced fracture. Soft tissues: Unremarkable. Organs: Partially imaged known left nephrolithiasis. XR/XR hip LT 2-3V wo/w pel* [id number] IMPRESSION: No acute fracture. See above report.
--- NOTE | 2023-07-17 14:03 | W.ED.FALL ---
HPI - Fall General: Chief Complaint: Fall Stated Complaint: LEFT HIP PAIN S/P FALL Time Seen by Provider: 07/17/23 13:54 Source: patient Mode of arrival: ambulatory History of Present Illness: 61-year-old female presents emergency room complaining of left hip pain she got dizzy last night and fell backwards and landed on her buttocks. She was given fentanyl and Zofran in route. She denies striking her head or losing consciousness she was able to crawl back to her room. She has been up partially weightbearing since then. MD complaint: fall Onset (ago): minute(s) Fall from: standing Fall witnessed: no Place fall occurred: home Loss of consciousness: None Prolonged down time: no Symptoms prior to fall: lightheadedness and dizziness Location of injury: pelvis (Left hip) Quality: sharp Associated symptoms-after fall: Denies abdominal pain, chest pain, confusion, difficulty walking, headache(s), hematuria, lightheadedness, neck pain, numbness, short of breath, vertigo or weakness Review of Systems Const: Denies: fever(s) or chills Card: Denies: chest pain or lightheadedness Resp: Denies: dyspnea GI: Denies: abdominal pain : Denies: hematuria Musc: Denies: neck pain Skin/Breast: Denies: rash Neuro: Denies: headache(s), difficulty walking, vertigo or confusion PFSH ED PFSH: Medical History Frequent headaches CVA (cerebrovascular accident) Kidney calculi Lumbar vertebral fracture HTN (hypertension) E-coli UTI Surgical History History of cholecystectomy H/O lithotripsy H/O: hysterectomy Family History Other CAD (coronary artery disease) Diabetes Social History Smoking and tobacco/nicotine status: never used tobacco/nicotine Alcohol intake: never Substance/Drug Use: never Lives independently: Yes Household members: family Housing: House Physical Exam Const: COMMON NORMALS: no acute distress GENERAL APPEARANCE: cooperative and comfortable ORIENTATION/CONSCIOUSNESS: Yes awake, Yes oriented to person, Yes oriented to place and Yes oriented to time HENMT: COMMON NORMALS: normocephalic, atraumatic and hearing grossly normal bilaterally HEAD & SCALP: normocephalic and atraumatic Resp: COMMON NORMALS: normal respiratory effort, No retractions, No use of accessory muscles and clear to auscultation bilaterally AUSCULTATION: clear to auscultation bilaterally Cardio: COMMON NORMALS: regular rate, regular rhythm and No murmurs present (Cardio) RATE: regular rate RHYTHM: regular rhythm GI: COMMON NORMALS: Soft to palpation and No hepatosplenomegaly present AUSCULTATION: Yes normoactive bowel sounds PALPATION: Yes Soft to palpation, No Tenderness to palpation present (GI), No Guarding due to palpation present (GI) and Yes No hepatosplenomegaly present Extremity: COMMON NORMALS: normal to inspection, capillary refill normal, no clubbing, cyanosis or edema, no calf tenderness and no pedal edema Neuro: SENSORIUM/ORIENTATION: Yes oriented to person, Yes oriented to place and Yes oriented to time Skin: COMMON NORMALS: no rashes or lesions noted GENERAL SKIN EXAM: no rashes or lesions noted Course Vital Signs: Vital signs: Vital Signs Temperature 98.0 F 07/17/23 13:52 Pulse Rate 89 07/17/23 16:57 Respiratory Rate 16 07/17/23 13:52 Blood Pressure 123/70 07/17/23 16:57 Pulse Oximetry 97 07/17/23 16:57 Oxygen Delivery Me thod Room Air 07/17/23 14:57 MDM - Fall Medical Decision Making L4 compression fracture patient has no focal neurologic deficits at this time. Discharged home with a T SLO brace and hydrocodone for pain. Set up for an outpatient MRI and follow-up with Dr. Ferrara for further treatment recommendations if pain becomes uncontrollable return to the emergency room Medical Records I reviewed the patient's medical records. Lab Data I reviewed the patient's lab results. Radiology Impressions Lumbar Spine X-Ray 07/17/23 14:04 IMPRESSION: Mild superior endplate compression deformities of L4 on L5. The L5 vertebral body height appears similar to prior CT comparison February 2023. The L4 compression deformity is new from this comparison. Sacrum and Coccyx X-Ray 07/17/23 14:04 IMPRESSION: No acute findings. Lumbar Spine CT 07/17/23 15:14 IMPRESSION: New mild L4 superior endplate compression fracture with mild retropulsion abutting the spinal canal. Unchanged mild L5 superior endplate compression deformity without significant retropulsion All radiology interpretation(s) finalized by discharge Discharge Plan Discharge Patient Disposition: Home Clinical Impression: Compression fracture Condition: Stable Prescriptions: New hydrocodone-acetaminophen 5-325 mg tablet 1 tab PO Q6H PRN (Reason: pain) Qty: 20 0RF No Action ondansetron 4 mg tablet,disintegrating 4 mg PO Q8H PRN (Reason: nausea and vomiting) Qty: 14 0RF atorvastatin 20 mg tablet 20 mg PO QPM tizanidine 4 mg tablet 4 mg PO Q8H PRN (Reason: Muscle Spasm) tolterodine 4 mg capsule,extended release 24hr 4 mg PO DAILY Hold Instructions: Resume on 03/12/23. venlafaxine 150 mg capsule,extended release 24hr 150 mg PO QPM clopidogrel 75 mg tablet 75 mg PO QPM pantoprazole 20 mg tablet,delayed release (DR/EC) 20 mg PO DAILY potassium chloride 20 mEq tablet,ER particles/crystals 20 meq PO BID rizatriptan 10 mg tablet,disintegrating 10 mg PO Q8H PRN (Reason: Migraine Headache) hydrochlorothiazide 25 mg tablet 25 mg PO DAILY Hold Instructions: Resume on 03/12/23. gabapentin 100 mg capsule 100 mg PO TID Discharge Orders: Discharge ED (Routine); Ordered 07/17/23 Ordered By: Bernard Hwang Discharge Diet: Usual diet Discharge Activity: Limit activity as instructed Patient Instructions: Vertebral Compression Fracture (ED), Opioid Safety, Pain Management Activity Restrictions/Additional Instructions: Thank you for choosing [facility] for your healthcare needs today. Please realize this is an emergency room and that we are providing you with a medical screening exam and this may not be complete and all inclusive of all the testing and or work up that you may need to determine your ailment or severity of your illness. It is very important that you follow up as instructed or that you return to the Emergency Department should you have concerns or if your condition changes or worsens in any way. utilization management manager will make arrangements for you to have an outpatient MRI without contrast and a follow-up appointment with your orthopedic spine surgeon if your pain worsens or becomes uncontrollable return to the emergency room Coding Level of Care Code ED Truss Designer for Gustavo Pete
--- NOTE | 2023-07-17 14:04 | XRR_ITS ---
PROCEDURE INFORMATION: Exam: XR Sacrum and Coccyx, 2 or More Views Exam date and time: 07/17/2023 2:28 PM Age: 63 years old Clinical indication: Injury or trauma; Other: Left hip/low back/ tailbone pain post fall; Prior surgery; Surgery date: 6+ months; Surgery type: Bladder stimulator TECHNIQUE: Imaging protocol: XR of the sacrum and coccyx, 2 or more views. COMPARISON: CR XR lumbar spine 2-3V* [id number] 07/17/2023 2:28 PM FINDINGS: Bones/joints: No fracture or dislocation. Mild pelvic degenerative changes. Soft tissues: No acute findings. Spinal stimulator in place. XR/XR sacrum coccyx min 2V [id number] IMPRESSION: No acute findings.
--- NOTE | 2023-07-17 14:04 | XRR_ITS ---
PROCEDURE INFORMATION: Exam: XR Lumbosacral Spine Exam date and time: 07/17/2023 2:28 PM Age: 63 years old Clinical indication: Injury or trauma; Other: Left hip/low back/ tailbone pain post fall; Prior surgery; Surgery date: 6+ months; Surgery type: Bladder stimulator TECHNIQUE: Imaging protocol: Radiologic exam of the lumbosacral spine. Views: 2 or 3 views. COMPARISON: CR (PELVIS, ) 07/17/2023 2:28 PM FINDINGS: Bones/joints: Mild superior endplate compression deformities of L4 and L5. Multilevel degenerative changes worst at L5-S1. Alignment is maintained. Soft tissues: No acute findings. Vascular calcifications. XR/XR lumbar spine 2-3V* [id number] IMPRESSION: Mild superior endplate compression deformities of L4 on L5. The L5 vertebral body height appears similar to prior CT comparison February 2023. The L4 compression deformity is new from this comparison.
--- NOTE | 2023-07-17 14:52 | PC.PHAR ---
PT STATES HAS NOT TAKEN ANY MEDICATION TODAY. 07/17/23
--- NOTE | 2023-07-17 15:14 | CTR_ITS ---
PROCEDURE INFORMATION: Exam: CT Lumbar Spine Without Contrast Exam date and time: 07/17/2023 3:38 PM Age: 63 years old Clinical indication: Injury or trauma; Fall; Blunt trauma (contusions or hematomas); Additional info: New l4 compression fracture TECHNIQUE: Imaging protocol: Computed tomography of the lumbar spine without contrast. Radiation optimization: All CT scans at this facility use at least one of these dose optimization techniques: automated exposure control; mA and/or kV adjustment per patient size (includes targeted exams where dose is matched to clinical indication); or iterative reconstruction. COMPARISON: CR XR lumbar spine 2-3V* [id number] 07/17/2023 2:28 PM RADIATION DOSE METRICS: Total DLP (mGy-cm): 803.63 FINDINGS: Bones/joints: Redemonstrated superior in plate compression deformities of L4 and L5. The L4 superior endplate compression deformity has mild retropulsion of 3 mm. The L5 superior endplate compression deformity appears stable to prior comparison. Mild multilevel degenerative changes otherwise. Soft tissues: Vascular calcifications. Left lower renal calcifications/calculi. CT/CT lumbar spine wo con* [id number] IMPRESSION: New mild L4 superior endplate compression fracture with mild retropulsion abutting the spinal canal. Unchanged mild L5 superior endplate compression deformity without significant retropulsion
[2023-07-17] MEDS: HYDROcodone-acetaminophen 5-325 mg Tablet 1 TAB PO (15:47)
--- NOTE | 2023-07-19 18:20 | DCPLANNER ---
Message was sent to ortho on 07/19/23 at 8315. Clinic to contact patient
== END 2023-07-17 18:02 | disposition home or self-care (01) ==
PROVIDERS: Emergency Provider Family Medicine
DX: S32.040A Wedge compression fracture of fourth lumbar vertebra, initial encounter for closed fracture (principal); S32.050A Wedge compression fracture of fifth lumbar vertebra, initial encounter for closed fracture; Z79.02 Long term (current) use of antithrombotics/antiplatelets; Z86.73 Personal history of transient ischemic attack (TIA), and cerebral infarction without residual deficits; I10 Essential (primary) hypertension; W18.39XA Other fall on same level, initial encounter
CPT/HCPCS: 72100; 72131; 72220; 73502; 97760; 99284; L0456

== ENCOUNTER → 2023-09-07 14:37 | Outpatient (BNVA) | payer MEDICARE, MEDICAID, SELFPAY | PROVIDERS: PCP Nurse Practitioner Family; Referring Provider Family Medicine; Visit Provider Orthopaedic Surgery | DX: M54.9 Dorsalgia, unspecified (principal); S32.040A Wedge compression fracture of fourth lumbar vertebra, initial encounter for closed fracture; X58.XXXA Exposure to other specified factors, initial encounter | CPT/HCPCS: 72100; 99203 ==

== ENCOUNTER → 2023-10-21 13:05 | Outpatient (BNVA) | payer MEDICARE, MEDICAID, SELFPAY | PROVIDERS: PCP Nurse Practitioner Family; Visit Provider Orthopaedic Surgery | DX: S32.040A Wedge compression fracture of fourth lumbar vertebra, initial encounter for closed fracture (principal); X58.XXXA Exposure to other specified factors, initial encounter | CPT/HCPCS: 72100; 99214 ==

== ENCOUNTER 2023-11-05 09:11 | Outpatient (CLI) | payer MEDICARE, MEDICAID, SELFPAY ==
--- NOTE | 2023-11-05 09:30 | NM_ITS ---
WS: [id number] NUCLEAR MEDICINE BONE SCAN Radiopharmaceutical: 25.6 Tc-99m MDP mCi IV Injection site: Antecubital Postinjection imaging delay: 1 hr CLINICAL INFORMATION: lumbar fx COMPARISON: CT 2023 FINDINGS: Bone lesions: There are no osseous lesions suspicious for metastatic disease. Soft tissue contours: Normal. Kidneys: LEFT extrarenal pelvis. Other findings: Degenerative arthritis bilateral shoulders and AC joints. Joint arthritis both knees and ankles. Focal avid radiotracer activity involving the L4 superior endplate consistent with recent acute comp ression Minimal if any radiotracer uptake involving the L5 superior endplate compatible with chronic compress ion NM/NM bone scan whole body* [id number] IMPRESSION: 1. Focal radiotracer activity involving the L4 vertebral body consistent with recent compression. 2. Very minimal uptake involving the L5 superior end plate likely due to chron ic compression
== END 2023-11-05 09:12 | disposition home or self-care (01) ==
LOC: RAD 09:11
PROVIDERS: PCP Nurse Practitioner Family; Visit Provider Orthopaedic Surgery
DX: S32.040A Wedge compression fracture of fourth lumbar vertebra, initial encounter for closed fracture (principal); X58.XXXA Exposure to other specified factors, initial encounter
CPT/HCPCS: 78306; A9561

== ENCOUNTER 2023-11-16 08:32 | Outpatient (CLI) | payer MEDICARE, MEDICAID, SELFPAY ==
--- NOTE | 2023-11-16 09:00 | IR_ITS ---
WS: [id number] LUMBAR MYELOGRAM HISTORY: lumbar fx COMPARISON: None available. FLUOROSCOPY TIME: 1min [id number] # of spot films:9 Procedure, risks and complications were explained to the patient. Risks including bleeding, infection , headaches, allergic reaction and seizures. Consent has been obtained. With the patient in prone position the skin over the lumbar region is cleansed with ChloraPrep and an esthetized with lidocaine. 22-gauge spinal needle is inserted into the thecal sac at the appropriate level determined by fluoroscopy. Omnipaque 240; 12 ml is injected slowly under fluoroscopy with no co mplications. Needle bevel is perpendicular to the longitudinal fibers of the dura. Stylet is reinsert ed prior to removal of the needle. Patient tolerated the procedure well. Patient will proceed to CT f or further evaluation. Good distention of the thecal sac with contrast. There is narrowing of the central canal at L3-4 and L4-5. This area will be better evaluated on follow-up CT. Patient has known compression fractures at L3 and L5. Prior cholecystectomy. IR/[place] [id number] IMPRESSION: 1. Uncomplicated lumbar myelogram. 2. Component of central canal stenosis at L3-4 and L4-5 will be better evaluat ed by the CT to follow. 3. Known compression fractures at L3 and L5.
--- NOTE | 2023-11-16 09:00 | CT_ITS ---
WS: [id number] CT MYELOGRAM LUMBAR SPINE HISTORY: lumbar fx TECHNIQUE: Contiguous 2.5 mm axial imaging performed from T12 through the mid sacral level. Bone and soft tissue windows reviewed. Sagittal and coronal reformats are submitted and reviewed. DLP: 497.[address] scans at [facility] use at least one of these dose optimization techniques: automated e xposure control; mA and/or kV adjustment per patient size (includes targeted exams where dose is matc hed to clinical indication); or iterative reconstruction. COMPARISON: 07/17/2023 Good contrast opacification of the thecal sac. LEFT curvature lumbar spine. Reidentified is an L4 compression fracture as described on 07/17/2023. There is been progression of lo ss of height since the prior examination. Central vertebral body height on the prior study was 1.6 cm and is now 1.3 cm. Retropulsion of the posterior superior endplate is 4 mm. Stable appearing 20% com pression fracture of L5. Additional incompletely visualized T12 compression fracture by 12% has been previously described. L1-L2: Normal. No stenosis. L2-L3: Normal. No stenosis. L3-L4: Mild annular disc bulging with osteophytic ridging. Ligamentum flavum and mild facet arthritis . Posterior retropulsion of L3 does contact and slightly deform the ventral thecal sac and the nerve roots. Moderate central and bilateral subarticular recess stenosis. There is a very shallow RIGHT for aminal disc protrusion. There is mild disc contact also on the exiting RIGHT L3 nerve root. L4-L5: Mild annular disc bulging with osteophytic ridging, ligamentum flavum and facet arthritis. Mil d central, bilateral subarticular recess and foraminal stenosis. L5-S1: Mild disc bulging and facet arthritis. Small foraminal osteophytes. Mild bilateral foraminal s tenosis. Moderate calcification abdominal aorta with heavy calcification extending into the iliac arteries. No nobstructing LEFT renal calcifications. Prior cholecystectomy. CT/CT lumbar spine wo con* [id number] IMPRESSION: 1. Mild progression of L4 compression fracture since 07/17/2023. 2. Retropulsion of the posterior superior endplate of L4 by 4 mm with contact on the ventral thecal sac. 3. L3-4: Moderate central and bilateral subarticular recess stenosis. Retropul buck of the L4 vertebral body contributing to the central stenosis and contacti ng the ventral thecal sac. 4. There is also slight disc contact on the exiting RIGHT L3 nerve root. 5. L4-5: Mild central, bilateral subarticular recess and foraminal stenosis. 6. L5-S1: Mild bilateral foraminal stenosis. 7. Remote, unchanged T12 and L5 compression fractures.
[2023-11-16] MEDS: iohexol 240 mg/mL 50 mL Btl 20 ML INTRA-ARTI (10:38)
== END 2023-11-16 08:33 | disposition home or self-care (01) ==
LOC: RAD 08:33
PROVIDERS: PCP Nurse Practitioner Family; Visit Provider Orthopaedic Surgery
DX: S32.040A Wedge compression fracture of fourth lumbar vertebra, initial encounter for closed fracture (principal); M43.8X9 Other specified deforming dorsopathies, site unspecified; S32.050A Wedge compression fracture of fifth lumbar vertebra, initial encounter for closed fracture; S22.080A Wedge compression fracture of T11-T12 vertebra, initial encounter for closed fracture; I70.0 Atherosclerosis of aorta; I70.8 Atherosclerosis of other arteries; Z90.49 Acquired absence of other specified parts of digestive tract
CPT/HCPCS: 62304; 72131; Q9966

== ENCOUNTER → 2023-11-25 15:00 | Outpatient (BNVA) | payer MEDICARE, MEDICAID, SELFPAY | PROVIDERS: PCP Nurse Practitioner Family; Visit Provider Orthopaedic Surgery | DX: S32.040A Wedge compression fracture of fourth lumbar vertebra, initial encounter for closed fracture (principal); M54.9 Dorsalgia, unspecified; X58.XXXA Exposure to other specified factors, initial encounter | CPT/HCPCS: 80053; 81001; 85025; 87077; 87086; 87186; 99214 ==

== ENCOUNTER 2023-12-03 07:56 | Day surgery (SDC) | payer MEDICARE, MEDICAID, SELFPAY ==
[2023-12-03] VITALS (10 sets, daily range): BP systolic 144–186; BP diastolic 76–97; PULSE 87–105; RESP 13–18; TEMP 36.2; O2SAT 92–100; BMI 30.9
--- NOTE | 2023-12-03 08:03 | SC_ITS ---
WS: [id number] EXAMINATION: C-arm FL for Kyphoplasty ORDER DATE: 12/03/2023 8:03 AM REASON FOR EXAM: Surgery COMPARISON: None available. FLUOROSCOPY TIME: 55.5 seconds # OF SPOT FILMS: 2 FINDINGS: Barium opacified methylmethacrylate L4 vertebral body. No significant extravasation. SC/C-arm FL for Kyphoplasty IMPRESSION: Lumbar vertebroplasty as above.
[2023-12-03] MEDS: sodium chloride 0.9% 1,000 ML 30 ML IV (08:30)
--- NOTE | 2023-12-03 09:03 | ANES.PREANE2 ---
Pre-Anesthetic Assessment Height/Weight: Height 1.6 m Weight 79.379 kg Temp Pulse Resp BP Pulse Ox O2 Del Method 97.1 F L 96 18 154/90 96 Room Air 12/03/23 08:13 12/03/23 08:13 12/03/23 08:13 12/03/23 08:13 12/03/23 08:13 12/03/23 08:13 Preop Diagnosis: L4 wedge osteoporotic compression fracture Operation Date: 12/03/23 09:30 Proposed Procedures p L 4 Kyphoplasty(Not Applicable) - Javi Ferrara DO Familial anesthetic complications: None Was Beta Ant taken within 24 hours: N/A Was Clonidine taken within 24 hours: N/A Last intake: Intake Last Liquid Date 12/03/23 Last Liquid Time 07:30 Last Solid Date 12/02/23 Last Solid Time 19:30 Social No alcohol and No tobacco Exam alert, oriented x 3, clear to auscultation bilaterally and regular rate & rhythm Airway Mallampati: Class IV Dentition: other (no teeth) Comments: Comments: small mouth opening, excess submandibular tissues CV/HEM Hypertension GI Gastroesophageal Reflux Disease Metabolic Hyperlipidemia Neuropsych Cerebrovascular Accident (L arm parasthesias) B/L CEA Anesthetic Plan ASA status: 3 Anesthesia: General Risk of > 500 ml blood loss (7ml/kg in children): Yes, adequate IV access and fluids planned Medications/Allergies Home Medications Medication Instructions Recorded Confirmed Last Taken Type ondansetron 4 mg disintegrating 4 mg PO Q8H PRN nausea and 02/22/23 12/03/23 1 Week Ago Rx tablet vomiting #14 tabs ~11/26/23 atorvastatin 20 mg tablet 20 mg PO QPM 02/24/23 12/03/23 12/02/23 History clopidogrel 75 mg tablet 75 mg PO QPM 02/24/23 12/03/23 11/25/23 History gabapentin 100 mg capsule 100 mg PO TID 02/24/23 12/03/23 12/02/23 History hydrochlorothiazide 25 mg tablet 25 mg PO DAILY 02/24/23 12/03/23 12/02/23 History pantoprazole 20 mg tablet,delayed 20 mg PO DAILY 02/24/23 12/03/23 12/02/23 History release potassium chloride 20 mEq 20 meq PO BID 02/24/23 12/03/23 12/02/23 History tablet,extended release(part/cryst) rizatriptan 10 mg disintegrating 10 mg PO Q8H PRN Migraine Headache 02/24/23 12/03/23 2 Weeks Ago History tablet ~11/19/23 tizanidine 4 mg tablet 4 mg PO Q8H PRN Muscle Spasm 02/24/23 12/03/23 11/30/23 History tolterodine 4 mg capsule,extended 4 mg PO DAILY 02/24/23 12/03/23 12/02/23 History release 24 hr venlafaxine 150 mg 150 mg PO QPM 02/24/23 12/03/23 12/02/23 History capsule,extended release 24 hr Allergies Allergy/AdvReac Type Severity Reaction Status Date / Time Penicillins Allergy ALGY-Rash Verified 10/21/23 13:18 Sulfa (Sulfonamide Allergy ALGY-Rash Verified 10/21/23 13:18 Antibiotics) Current Medications Generic Name Dose Route Start Last Admin Trade Name Freq PRN Reason Stop Dose Admin Sodium Chloride 1,000 mls @ 30 mls/hr 12/03/23 08:15 12/03/23 08:30 Sodium Chloride 0.9% IV 12/04/23 08:14 30 mls/hr .Q24H NADIA Administration PFSH Anesthesia Medical History Frequent headaches CVA (cerebrovascular accident) Kidney calculi Lumbar vertebral fracture HTN (hypertension) E-coli UTI Surgical History History of cholecystectomy H/O lithotripsy H/O: hysterectomy Family History Other CAD (coronary artery disease) Diabetes Social History Smoking and tobacco/nicotine status: never used tobacco/nicotine Alcohol intake: never Substance/Drug Use: never Lives independently: Yes Household members: family Housing: House Data Anesthesia Cardiac Studies: No Data to Display
--- NOTE | 2023-12-03 09:17 | W.PM.OPSUD ---
Surgery/Procedure H&P Update DATE OF PROCEDURE: December 03, 2023 DATE H&P PERFORMED: 11/25/23 H&P UPDATE INFORMATION: I have reviewed H&P completed within last 30 days, I have examined patient prior to procedure and No changes to prior documentation PREOP DIAGNOSIS: L4 wedge osteoporotic compression fracture PLANNED PROCEDURE: Operation Date: 12/03/23 09:30 Proposed Procedures p L 4 Kyphoplasty(Not Applicable) - Javi Ferrara DO
[2023-12-03] MEDS: clindamycin 600 MG/50 ML PREMIX 100 MG IV (09:25)
[2023-12-03] MEDS: lidocaine-epi 1% 20 mL INJ INJECTION (09:55)
--- NOTE | 2023-12-03 10:39 | PM.OP ---
Operative Report Date of procedure: December 03, 2023 Pre-op diagnosis: L4 wedge osteoporotic traumatic compression fracture Post-op diagnosis: same Procedure done: L4 kyphoplasty Surgeon: Javi Ferrara DO Estimated blood loss (mL): 5 Procedure: L4 kyphoplasty Patient brought the operative suite after going anesthesia was placed in the prone position. All areas impingement well-padded. Patient's prepped draped also fashion. Skin incision made over the left and right pedicle. Of L4. The awl was inserted. Followed by the drill. Followed by the balloon. This was done bilaterally. And then the cement was injected and AP lateral fluoroscopy ensured there is good position there is no leakage. Tubes were pulled AP lateral fluoroscopy ensured that there was no leakage of cement and fracture is in good position.
--- NOTE | 2023-12-03 12:15 | ANE.PACU2 ---
Inpatient post-anesthesia follow up: Airway intact: Yes Vital signs: Temperature 97.2 F Pulse Rate 87 Respiratory Rate 17 Blood Pressure 149/77 Pulse Oximetry 92 Oxygen Delivery Me thod Room Air Oxygen Flow Rate 8 Fraction of Inspir ed Oxygen Hydration adequate: Yes Nausea and vomiting: No Pain level: 1 Mental status: Baseline
== END 2023-12-03 12:15 | disposition home or self-care (01) ==
PROVIDERS: PCP Nurse Practitioner Family; Visit Provider Orthopaedic Surgery
PROC: (CPT 22514; principal; 2023-12-03 09:10)
DX: S32.040A Wedge compression fracture of fourth lumbar vertebra, initial encounter for closed fracture (principal); X58.XXXA Exposure to other specified factors, initial encounter; I10 Essential (primary) hypertension; K21.9 Gastro-esophageal reflux disease without esophagitis; E78.5 Hyperlipidemia, unspecified; Z86.73 Personal history of transient ischemic attack (TIA), and cerebral infarction without residual deficits
CPT/HCPCS: 22514; 76000; J0131; J1100; J2405; J2704; J3010; J3490; J7030

== ENCOUNTER → 2024-01-20 14:36 | Outpatient (BNVA) | payer MEDICARE, MEDICAID, SELFPAY | PROVIDERS: PCP Nurse Practitioner Family; Visit Provider Orthopaedic Surgery | DX: S32.040D Wedge compression fracture of fourth lumbar vertebra, subsequent encounter for fracture with routine healing (principal); X58.XXXD Exposure to other specified factors, subsequent encounter | CPT/HCPCS: 72100; 99213 ==

== ENCOUNTER → 2024-02-16 13:35 | Outpatient (BNVA) | payer MEDICARE, MEDICAID, SELFPAY | PROVIDERS: PCP Nurse Practitioner Family; Visit Provider Nurse Practitioner Family | DX: I10 Essential (primary) hypertension (principal); R53.83 Other fatigue; E87.1 Hypo-osmolality and hyponatremia | CPT/HCPCS: 85025 ==

== ENCOUNTER → 2024-02-17 09:51 | Outpatient (BNVA) | payer MEDICARE, MEDICAID, SELFPAY | PROVIDERS: PCP Nurse Practitioner Family; Visit Provider Nurse Practitioner Family | DX: I10 Essential (primary) hypertension (principal); R53.83 Other fatigue; R73.09 Other abnormal glucose; E87.1 Hypo-osmolality and hyponatremia | CPT/HCPCS: 80053; 83036; 84443; 85025 ==

== ENCOUNTER 2024-06-22 18:35 | Emergency (ER) | payer MEDICARE, MEDICAID, SELFPAY ==
[2024-06-22 18:39] VITALS: PULSE 95; RESP 16; TEMP 36.7; O2SAT 98; BMI 27.4
--- NOTE | 2024-06-22 18:57 | CTR_ITS ---
PROCEDURE INFORMATION: Exam: CT Head Without Contrast Exam date and time: 06/22/2024 7:04 PM Age: 64 years old Clinical indication: Syncope and collapse; Additional info: Vertigo, near syncope, right ear pain TECHNIQUE: Imaging protocol: Computed tomography of the head without contrast. Radiation optimization: All CT scans at this facility use at least one of these dose optimization techniques: automated exposure control; mA and/or kV adjustment per patient size (includes targeted exams where dose is matched to clinical indication); or iterative reconstruction. COMPARISON: NM bone scan whole body* [id number] 11/05/2023 9:30 AM RADIATION DOSE METRICS: Total DLP (mGy-cm): 1159.39 FINDINGS: Brain: Encephalomalacia in the right frontal and temporal lobes and left occipital lobe. Acute infarction at the periphery of the encephalomalacia cannot be excluded and can be further assessed with brain MRI with diffusion-weighted imaging. No prior imaging available at the time of dictation for comparison. No intracranial hemorrhage. No mass effect or midline shift. Cerebral ventricles: No ventriculomegaly. Paranasal sinuses: Visualized sinuses are unremarkable. No fluid levels. Mastoid air cells: Complete opacification of the right mastoid air cells which can be seen the setting of mastoiditis. Bones: Unremarkable. No acute fracture. Soft tissues: Unremarkable. CT/CT head wo con* [id number] IMPRESSION: 1. Encephalomalacia in the right frontal and temporal lobes and left occipital lobe. Acute infarction at the periphery of the encephalomalacia cannot be excluded and can be further assessed with brain MRI with diffusion-weighted imaging. No prior imaging available at the time of dictation for comparison. 2. No intracranial hemorrhage. 3. No mass effect or midline shift. 4. Complete opacification of the right mastoid air cells which can be seen the setting of mastoiditis.
--- NOTE | 2024-06-22 18:57 | XRR_ITS ---
PROCEDURE INFORMATION: Exam: XR Chest Exam date and time: 06/22/2024 7:08 PM Age: 64 years old Clinical indication: Other: Weakness TECHNIQUE: Imaging protocol: Radiologic exam of the chest. Views: 1 view. COMPARISON: NM bone scan whole body* [id number] 11/05/2023 9:30 AM FINDINGS: Lungs: Unremarkable. No consolidation. Pleural spaces: Unremarkable. No pleural effusion. No pneumothorax. Heart/Mediastinum: Unremarkable. No cardiomegaly. Bones/joints: Unremarkable. XR/XR chest 1V portable [id number] IMPRESSION: No acute findings.
--- NOTE | 2024-06-22 18:58 | W.ED.SYNCOPE ---
HPI - Syncope General: Chief Complaint: Syncope Stated Complaint: weakness, dizziness, ear pain Time Seen by Provider: 06/22/24 18:39 History of Present Illness: 64-year-old female who presents to the emergency room with weakness, dizziness, ear pain. She has been having vertiginous symptoms with also some near syncope with standing and movement for several days now. She is also been having some right ear pain. She could not get into her PCP. She has some generalized weakness. No chest pain. No abdominal pain. No nausea or vomiting. No known fevers. Related Data Previous Rx's Medication Instructions Recorded atorvastatin 20 mg tablet 20 mg PO QPM #30 tabs 02/16/24 clopidogrel 75 mg tablet 75 mg PO QPM #30 tabs 02/16/24 gabapentin 100 mg capsule 100 mg PO TID #90 caps 02/16/24 hydrochlorothiazide 25 mg tablet 25 mg PO DAILY #30 tabs 02/16/24 pantoprazole 20 mg tablet,delayed 20 mg PO DAILY #30 tabs 02/16/24 release potassium chloride 20 mEq 20 meq PO BID #30 tabs 02/16/24 tablet,extended release(part/cryst) rizatriptan 10 mg disintegrating 10 mg PO Q8H PRN Migraine Headache 02/16/24 tablet #20 tabs tizanidine 4 mg tablet 4 mg PO Q8H PRN Muscle Spasm #30 02/16/24 tabs tolterodine 4 mg capsule,extended 4 mg PO DAILY #30 caps 02/16/24 release 24 hr venlafaxine 150 mg See Rx Instructions .Route 04/25/24 capsule,extended release 24 hr .COMPLEX #30 caps cefdinir 300 mg capsule 300 mg PO BID 10 days #20 caps 06/22/24 ciprofloxacin 0.3 %-dexamethasone 4 drp otic (ear) BID 7 days #7.5 mL 06/22/24 0.1 % ear drops,suspension meclizine 25 mg tablet 25 mg PO QID PRN dizziness #20 tabs 06/22/24 ondansetron 4 mg disintegrating 4 mg PO Q8H PRN nausea and 06/22/24 tablet vomiting #10 tabs Allergies Allergy/AdvReac Type Severity Reaction Status Date / Time Penicillins Allergy ALGY-Rash Verified 06/22/24 18:41 Sulfa (Sulfonamide Allergy ALGY-Rash Verified 06/22/24 18:41 Antibiotics) Review of Systems Narrative: Constitutional symptoms: Negative except as documented in HPI. Skin symptoms: Negative except as documented in HPI. Eye symptoms: Negative except as documented in HPI. ENMT symptoms: Negative except as documented in HPI. Respiratory symptoms: Negative except as documented in HPI. Cardiovascular symptoms: Negative except as documented in HPI. Gastrointestinal symptoms: Negative except as documented in HPI. Genitourinary symptoms: Negative except as documented in HPI. Musculoskeletal symptoms: Negative except as documented in HPI. Neurologic symptoms: Negative except as documented in HPI. Psychiatric symptoms: Negative except as documented in HPI. Endocrine symptoms: Negative except as documented in HPI. PFSH ED PFSH: Medical History Frequent headaches CVA (cerebrovascular accident) Kidney calculi Lumbar vertebral fracture HTN (hypertension) E-coli UTI Surgical History History of cholecystectomy H/O lithotripsy H/O: hysterectomy Family History Other CAD (coronary artery disease) Diabetes Social History Smoking and tobacco/nicotine status: never used tobacco/nicotine Alcohol intake: never Substance/Drug Use: never Lives independently: Yes Household members: family Housing: House Physical Exam Narrative: EXAM NARRATIVE: General: Alert, no acute distress. Skin: Warm, dry. Head: Normocephalic, atraumatic. Neck: Supple, trachea midline. Eye: Extraocular movements are intact. Some tenderness of the ear canal with some mild erythema of the canal but the eardrum appears normal. No mastoid tenderness. Tenderness is limited strictly to the canal. Ears, nose, mouth and throat: mucosa moist. Cardiovascular: Regular, Normal peripheral perfusion. Respiratory: Lungs are clear to auscultation, respirations are non-labored, breath sounds are equal, Symmetrical chest wall expansion. Gastrointestinal: Soft, Nontender, Non distended Musculoskeletal: Normal ROM, no deformity. Neurological: Alert and oriented, No focal neurological deficit observed. Psychiatric: Cooperative, appropriate mood & affect. Course Vital Signs: Vital signs: Vital Signs Temperature 98.0 F 06/22/24 18:39 Pulse Rate 101 H 06/22/24 20:30 Respiratory Rate 18 06/22/24 19:35 Blood Pressure 186/66 06/22/24 20:30 Pulse Oximetry 99 06/22/24 20:30 Oxygen Delivery Me thod Room Air 06/22/24 20:30 MDM - Syncope Medical Decision Making Medical decision making: Differential diagnosis including but not limited to and based on the above HPI, review of systems and physical exam: for patient with complaint of dizziness: stroke, hypotension, hypertension, infection, vertigo, orthostasis Orders placed to evaluate differential diagnosis based on the above differential, HPI and physical exam EKG: Time 1914. Rate 96. Normal sinus rhythm, No ST-T changes, no ectopy, normal OH & QRS intervals, This was reviewed and interpreted by myself the ER physician at 0 CT head: Encephalomalacia. Patient has a known history of stroke. I do not have strong suspicion for stroke today particularly not in this distribution. Symptoms are positional and involved with movement and resolved completely when she is still. No acute intracranial process. no intracranial hemorrhage, no evidence of infarct. no evidence of acute fracture.This was reviewed and interpreted by myself the ER physician. Chest x-ray: No acute process. No infiltrate. No pneumothorax. This was reviewed and interpreted by myself the emergency room physician. I also reviewed the radiology report. Lab Review: Laboratory results were reviewed and interpreted by myself the emergency room physician. No leukocytosis. No anemia. No new renal failure. She does have a urinary tract infection. I reviewed the patient's medical record. Reexamination: Patient remained stable. No increased work of breathing. No altered mental status. No focal motor deficits. Assessment and plan: Vertigo Urinary tract infection ?IV Rocephin in the emergency room. - Discharged home - Discussed plan with patient. Answered any questions. - Evaluation and treatment of this problem were appropriate in the emergency setting. Lab Data 06/22/24 18:50 06/22/24 18:50 Radiology Impressions Chest X-Ray 06/22/24 18:57 IMPRESSION: No acute findings. Head CT 06/22/24 18:57 IMPRESSION: 1. Encephalomalacia in the right frontal and temporal lobes and left occipital lobe. Acute infarction at the periphery of the encephalomalacia cannot be excluded and can be further assessed with brain MRI with diffusion-weighted imaging. No prior imaging available at the time of dictation for comparison. 2. No intracranial hemorrhage. 3. No mass effect or midline shift. 4. Complete opacification of the right mastoid air cells which can be seen the setting of mastoiditis. Laboratory Results WBC 10.17 10^3/uL (3.29-11.43) 06/22/24 18:50 RBC 5.44 10^6/uL (3.85-5.65) 06/22/24 18:50 Hgb 13.90 g/dL (11.27-16.99) 06/22/24 18:50 Hct 45.5 % (36-47) 06/22/24 18:50 MCV 83.6 fl (85-98) L 06/22/24 18:50 MCH 25.6 pg (27-33) L 06/22/24 18:50 MCHC 30.5 g/dL (30-55) 06/22/24 18:50 RDW 14.4 % (12.1-15.1) 06/22/24 18:50 Plt Count 311 10^3/cmm (157-399) 06/22/24 18:50 MPV 10.9 fL (7.4-10.4) H 06/22/24 18:50 Neut % (Auto) 70.5 % 06/22/24 18:50 Lymph % (Auto) 18.3 % 06/22/24 18:50 [place] % (Auto) 7.3 % 06/22/24 18:50 Eos % (Auto) 2.2 % 06/22/24 18:50 Baso % (Auto) 1.4 % 06/22/24 18:50 Neut # (Auto) 7.18 10^3/uL (1.8-7.7) 06/22/24 18:50 Lymph # (Auto) 1.9 10^3/uL (0.8-4.8) 06/22/24 18:50 [place] # (Auto) 0.7 10^3/uL (0.2-0.9) 06/22/24 18:50 Eos # (Auto) 0.2 10^3/uL (0.0-0.8) 06/22/24 18:50 Baso # (Auto) 0.1 10^3/uL (0.0-0.1) 06/22/24 18:50 Nucleated RBC % (auto) 0 % 06/22/24 18:50 Nucleated RBCs # 0.0 /100WBC 06/22/24 18:50 Sodium 142 mmol/L (136-145) 06/22/24 18:50 Potassium 3.4 mmol/L (3.5-5.1) L 06/22/24 18:50 Chloride 103 mmol/L (98-107) 06/22/24 18:50 Carbon Dioxide 25 mmol/L (22-29) 06/22/24 18:50 Anion Gap 17.4 (5-19) 06/22/24 18:50 BUN 19 mg/dL (8-23) 06/22/24 18:50 Creatinine 1.1 mg/dL (0.5-0.9) H 06/22/24 18:50 GFR Calculation 50.2 mL/min (90-130) L 06/22/24 18:50 Glucose 100 mg/dL (65-115) 06/22/24 18:50 Calculated Osmolality 296 mOsm/kg (285-295) H 06/22/24 18:50 Lactic Acid 3.4 mmol/L (0.5-2.2) H 06/22/24 18:50 Calcium 9.6 mg/dL (8.5-10.5) 06/22/24 18:50 Total Bilirubin 0.4 mg/dL (0.15-1.2) 06/22/24 18:50 AST 28 U/L (0-32) 06/22/24 18:50 ALT 35 U/L (0-33) H 06/22/24 18:50 Alkaline Phosphatase 143 U/L (35-105) H 06/22/24 18:50 Total Protein 8.5 g/dL (6.6-8.7) 06/22/24 18:50 Albumin 4.2 g/dL (3.5-5.2) 06/22/24 18:50 Globulin 4.3 g/dL (1.3-4.6) 06/22/24 18:50 Urine Color Dark yellow (Yellow) A 06/22/24 19:36 Urine Appearance Turbid (CLEAR) A 06/22/24 19:36 Urine pH 6.5 (5-7) 06/22/24 19:36 Ur Specific [place] 1.025 (1.005-1.030) 06/22/24 19:36 Urine Protein 1+ (Negative) A 06/22/24 19:36 Urine Glucose (UA) Negative (Normal) 06/22/24 19:36 Urine Ketones Trace (Negative) 06/22/24 19:36 Urine Blood 2+ (Negative) A 06/22/24 19:36 Urine Nitrate Negative (Negative) 06/22/24 19:36 Urine Bilirubin 1+ (Negative) H 06/22/24 19:36 Urine Urobilinogen 1.0 mg/dL (Negative) 06/22/24 19:36 Ur Leukocyte Esterase 2+ (Negative) A 06/22/24 19:36 Urine RBC >100 /hpf (0-2) H 06/22/24 19:36 Urine WBC 21-50 /hpf (0-5) H 06/22/24 19:36 Ur Squamous Epith Cells 0-5 /hpf (0-5) 06/22/24 19:36 Amorphous Sediment 2+ /hpf 06/22/24 19:36 Urine Bacteria 4+ /hpf (NONE) H 06/22/24 19:36 Hyaline Casts 5.77 /lpf 06/22/24 19:36 All radiology interpretation(s) finalized by discharge Discharge Plan Discharge Patient Disposition: Home Clinical Impression: Urinary tract infection, Vertigo, Otitis externa Condition: Stable Prescriptions: New meclizine 25 mg tablet 25 mg PO QID PRN (Reason: dizziness) Qty: 20 0RF ondansetron 4 mg tablet,disintegrating 4 mg PO Q8H PRN (Reason: nausea and vomiting) Qty: 10 0RF cefdinir 300 mg capsule 300 mg PO BID 10 Days Qty: 20 0RF ciprofloxacin-dexamethasone 0.3-0.1 % drops,suspension 4 drp otic (ear) BID 7 Days Qty: 7.5 0RF No Action atorvastatin 20 mg tablet 20 mg PO QPM Qty: 30 4RF clopidogrel 75 mg tablet 75 mg PO QPM Qty: 30 4RF gabapentin 100 mg capsule 100 mg PO TID Qty: 90 4RF hydrochlorothiazide 25 mg tablet 25 mg PO DAILY Qty: 30 4RF Hold Instructions: Resume on 03/12/23. pantoprazole 20 mg tablet,delayed release (DR/EC) 20 mg PO DAILY Qty: 30 4RF potassium chloride 20 mEq tablet,ER particles/crystals 20 meq PO BID Qty: 30 4RF rizatriptan 10 mg tablet,disintegrating 10 mg PO Q8H PRN (Reason: Migraine Headache) Qty: 20 0RF tizanidine 4 mg tablet 4 mg PO Q8H PRN (Reason: Muscle Spasm) Qty: 30 4RF tolterodine 4 mg capsule,extended release 24hr 4 mg PO DAILY Qty: 30 0RF Hold Instructions: Resume on 03/12/23. venlafaxine 150 mg capsule,extended release 24hr See Rx Instructions .ROUTE .COMPLEX Qty: 30 0RF Dose Instruction: TAKE 1 CAPSULE BY MOUTH EVERY EVENING Rx Instructions: TAKE 1 CAPSULE BY MOUTH EVERY EVENING Discharge Orders: Discharge ED (Routine); Ordered 06/22/24 Ordered By: Malissa Villalba Referrals: Rosa M Good, [employer] [Primary Care Provider] - Discharge Diet: Advance as tolerated Discharge Activity: Increase activity as tolerated Patient Instructions: Otitis Externa - Adult, Vertigo (ED), Urinary Tract Infection in Older Adults (ED), Opioid Safety, Pain Management Activity Restrictions/Additional Instructions: Thank you for choosing [facility] for your healthcare needs today. Please realize this is an emergency room and that we are providing you with a medical screening exam and this may not be complete and all inclusive of all the testing and or work up that you may need to determine your ailment or severity of your illness. You have been screened and evaluated and felt safe for discharge. Health conditions do change or evolve sometimes and as such it is important that you follow up with your Primary Doctor to be re checked, 3-5 days is a general good time frame for follow up. You are always welcome to return to the ED for re assessment if your symptoms are worsening or you have new concerns Coding Level of Care Code ED Customer Service Technician for Gust[facility] Pete
--- NOTE | 2024-06-22 19:15 | ECG_ITS ---
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
[2024-06-22 19:19] LABS: Basophils # 0.1 10^3/uL (0.0-0.1); Basophils % 1.4 %; Eosinophils # 0.2 10^3/uL (0.0-0.8); Eosinophils % 2.2 %; Hematocrit 45.5 % (36-47); Lymphocytes # 1.9 10^3/uL (0.8-4.8); Lymphocytes % 18.3 %; Mean Corpuscular HGB Conc 30.5 g/dL (30-55); Mean Corpuscular Hemoglobin 25.6 pg (27-33); Mean Corpuscular Volume 83.6 fl (85-98); Mean Platelet Volume 10.9 fL (7.4-10.4); Monocytes # 0.7 10^3/uL (0.2-0.9); Monocytes % 7.3 %; Neutrophils # 7.18 10^3/uL (1.8-7.7); Neutrophils % 70.5 %; Nucleated Red Blood Cells % 0 %; Platelet Count 311 10^3/cmm (157-399); Red Blood Count 5.44 10^6/uL (3.85-5.65); Red Cell Distribution Width 14.4 % (12.1-15.1); White Blood Count 10.17 10^3/uL (3.29-11.43)
[2024-06-22 19:35] VITALS: BP 167/86; PULSE 107; RESP 18; O2SAT 98
[2024-06-22 19:44] LABS: Bilirubin Urine 1+ (Negative); Blood Urine 2+ (Negative); Glucose Urine UA Negative (Normal); Ketones Urine Trace (Negative); Leukocyte Esterase Urine 2+ (Negative); Nitrate Urine Negative (Negative); Protein Urine 1+ (Negative); Specific Gravity, Urine 1.025 (1.005-1.030); Urine Appearance Turbid (CLEAR); Urine Color Dark Yellow (Yellow); pH Urine 6.5 (5-7)
[2024-06-22 19:46] LABS: Bacteria Urine 4+ /hpf; Hyaline Casts Urine 5.77 /lpf; RBC Urine >100 /hpf (0-2); Squamous Epithelial Cell Urine 0-5 /hpf (0-5); WBC Urine 21-50 /hpf (0-5)
[2024-06-22 19:50] LABS: Alanine Aminotransferase 35 U/L (0-33); Albumin Level 4.2 g/dL (3.5-5.2); Alkaline Phosphatase 143 U/L (35-105); Anion Gap 17.4 (5-19); Aspartate Amino Transferase 28 U/L (0-32); Blood Urea Nitrogen 19 mg/dL (8-23); Calcium 9.6 mg/dL (8.5-10.5); Carbon Dioxide 25 mmol/L (22-29); Chloride 103 mmol/L (98-107); Globulin 4.3 g/dL (1.3-4.6); Glomerular Filtration Rate 50.2 mL/min (90-130); Glucose 100 mg/dL (65-115); Osmolality Calculated 296 mOsm/kg (285-295); Potassium 3.4 mmol/L (3.5-5.1); Sodium 142 mmol/L (136-145); Total Bilirubin 0.4 mg/dL (0.15-1.2); Total Protein 8.5 g/dL (6.6-8.7)
[2024-06-22 19:51] LABS: Lactic Sepsis W/Reflex 3.4 mmol/L (0.5-2.2)
[2024-06-22 19:53] LABS: UA Slide Review UA Slide Review Perf
[2024-06-22 19:55] LABS: Add Urine Culture? Yes; Amorphous Sediment Urine 2+ /hpf
[2024-06-22 20:30] VITALS: BP 186/66; PULSE 101; O2SAT 99
[2024-06-22] MEDS: cefepime 2,000 mg SDV 2000 MG IVP (20:40)
[2024-06-22 21:03] LABS: Reflex Lactate Order REFLEX LACTIC ORDERD
[2024-06-22 21:05] VITALS: BP 184/98; PULSE 104; O2SAT 98
== END 2024-06-22 21:06 | disposition home or self-care (01) ==
PROVIDERS: Emergency Provider Emergency Medicine; PCP Nurse Practitioner Family
DX: N39.0 Urinary tract infection, site not specified (principal); R42 Dizziness and giddiness; H60.90 Unspecified otitis externa, unspecified ear
CPT/HCPCS: 70450; 71045; 80053; 81001; 83605; 85025; 87086; 93005; 96374; 99285; J0692